=== PATIENT | female | born 1980 | race Caucasian/White ===

== ENCOUNTER 2019-02-03 07:31 | Observation (INO) | payer BC ==
[2019-02-03] MEDS ORDERED: HYDROmorphone 1 MG/ML Syringe IVPUSH ONE ×3 (08:04→14:05)
[2019-02-03] MEDS ORDERED: Ondansetron 4 MG/2 ML SDV IVPUSH ONE ×2 (08:04→09:08)
--- NOTE | 2019-02-03 08:11 | EDM.PDOC ---
ED HPI GENERAL MEDICAL PROBLEM - General Chief Complaint: Abdominal Pain Stated Complaint: ABDOMINAL PAIN Time Seen by Provider: 02/03/19 07:43 Source of Information: Reports: Patient, RN Notes Reviewed, Significant Other ( Boyfriend) History Limitations: Reports: No Limitations - History of Present Illness INITIAL COMMENTS - FREE TEXT/NARRATIVE: The patient states that she developed generalized abdominal pain around 14:00 yesterday, 02/02/2019. She states that she took a nap until around 19:00, by which time she noticed that the pain was greater in her right lower quadrant , and that she also had right flank pain. She describes the pain is sharp and stabbing in character. It waxes and wanes. The pain is better if she remains still, worse with movement. The patient developed nausea and emesis around 20:00 , and she notes that her pain is made much worse when she vomits. She denies having any dysuria, although does report that she has had increased urinary frequency. No gross hematuria. The patient also reports having one episode of watery diarrhea just prior to coming to the ED. The diarrhea did not modify her symptoms. No prior similar symptoms. The patient states that she took some ibuprofen around 09:00 this morning. Her last oral solid food was last night. Her LMP was 01/20/2019. The patient does not have a PCP. Abdomen Pain Score (Numeric/FACES): 8 - Related Data Allergies Allergy/AdvReac Type Severity Reaction Status Date / Time alcohol Allergy Blisters Verified 02/03/19 08:39 [From Mastisol Liquid Adhesive] gum mastic Allergy Blisters Verified 02/03/19 08:39 [From Mastisol Liquid Adhesive] methyl salicylate Allergy Blisters Verified 02/03/19 08:39 [From Mastisol Liquid Adhesive] storax Allergy Blisters Verified 02/03/19 08:39 [From Mastisol Liquid Adhesive] surgical glue Allergy Blisters Uncoded 02/03/19 08:39 Home Meds: Home Meds . 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: Other (See Below) (Ovarian cysts) : 2 Para: 2 Musculoskeletal History: Reports: Fracture (left foot) - Past Surgical History HEENT Surgical History: Reports: Eye Surgery (left, for strabismus), Oral Surgery (wisdom teeth extraction), Other (See Below) (mandible cyst excision) GI Surgical History: Reports: Cholecystectomy (around 2012 or 2013) Musculoskeletal Surgical History: Reports: ORIF (left foot) Dermatological Surgical History: Reports: Other (See Below) (Lipoma excised off back) Social & Family History - Tobacco Use Smoking Status *Q: Current Every Day Smoker Years of Tobacco use: 20 Packs/Tins Daily: 0.5 Packs/Tins Daily Comment: Down from 1 ppd - Alcohol Use Alcohol Use History: Yes Alcohol Use Frequency: Socially - Recreational Drug Use Recreational Drug Use: No - Living Situation & Occupation Living situation: Reports: , with Significant Other (Boyfriend), with Family (Son) 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 ED EXAM, GENERAL - Physical Exam Exam: See Below Exam Limited By: No Limitations General Appearance: Alert, WD/WN, Other (Appears uncomfortable) Eye Exam: Bilateral Eye: EOMI, Normal Inspection Ears: Normal External Exam, Hearing Grossly Normal Nose: Normal Inspection Throat/Mouth: Normal Inspection, Normal Lips, Normal Voice, No Airway Compromise Head: Atraumatic, Normocephalic Neck: Normal Inspection, Full Range of Motion Respiratory/Chest: No Respiratory Distress, Lungs Clear, Normal Breath Sounds, No Accessory Muscle Use Cardiovascular: Normal Peripheral Pulses, Regular Rate, Rhythm, No Gallop, No JVD, No Murmur, No Rub Peripheral Pulses: 4+: Radial (L), Radial (R) GI/Abdominal: Normal Bowel Sounds, Soft, No Organomegaly, No Distention, No Abnormal Bruit, No Mass, Tender (mild, RLQ to far right side. Essentially nontender elsewhere. Rovsing's sign absent.) (Female) Exam: Deferred Rectal (Female) Exam: Deferred Back Exam: Normal Inspection, Full Range of Motion, CVA Tenderness (R). No: CVA Tenderness (L) Extremities: Normal Inspection, Normal Range of Motion, No Pedal Edema, Normal Capillary Refill Neurological: Alert, Oriented, Normal Cognition, No Motor/Sensory Deficits Psychiatric: Normal Affect Skin Exam: Warm, Dry, Intact, Normal Color, No Rash Course - Vital Signs Last Recorded V/S: Last Vital Signs Temp 36.6 C 02/03/19 10:41 Pulse 83 02/03/19 10:41 Resp 16 02/03/19 10:41 BP 110/74 02/03/19 10:41 Pulse Ox 100 02/03/19 10:41 - Orders/Labs/Meds Orders: Active Orders 24 hr Category Date Time Status Abdomen Pelvis w Cont [CT] Stat Exams 02/03/19 09:03 Taken Sodium Chloride 0.9% [Normal Saline] 1,000 ml Med 02/03/19 08:15 Active IV ASDIRECTED Sodium Chloride 0.9% [Saline Flush] Med 02/03/19 09:23 Active 10 ml FLUSH ONETIME PRN Medication Orders Sodium Chloride (Normal Saline) 1,000 mls @ 150 mls/hr IV ASDIRECTED MARYAM Last Admin: 02/03/19 08:19 Dose: 150 mls/hr Sodium Chloride (Saline Flush) 10 ml FLUSH ONETIME PRN PRN Reason: IV FLUSH Last Admin: 02/03/19 10:36 Dose: 10 ml Labs: Laboratory Tests 02/03/19 02/03/19 02/03/19 Range/Units 07:55 07:55 08:10 WBC 8.61 (3.98-10.04) K/mm3 RBC 5.22 (3.98-5.22) M/mm3 Hgb 15.1 (11.2-15.7) gm/L Hct 42.8 (34.1-44.9) % MCV 82.0 (79.4-94.8) fl MCH 28.9 (25.6-32.2) pg MCHC 35.3 (32.2-35.5) g/dl RDW Std Deviation 38.1 (36.4-46.3) fL Plt Count 293 (182-369) K/mm3 MPV 10.7 (9.4-12.3) fl Neutrophils % (Manual) 49 (40-60) % Band Neutrophils % 0 (0-10) % Lymphocytes % (Manual) 47 H (20-40) % Atypical Lymphs % 0 % Monocytes % (Manual) 4 (2-10) % Eosinophils % (Manual) 0 L (0.7-5.8) % Basophils % (Manual) 0 L (0.1-1.2) Platelet Estimate Adequate Polychromasia 1+ slight Anisocytosis 1+ slight RBC Morph Comment Abnormal Sodium 138 (136-145) mEq/L Potassium 3.3 L (3.5-5.1) mEq/L Chloride 102 (98-107) mEq/L Carbon Dioxide 23 (21-32) mEq/L Anion Gap 16.3 H (5-15) BUN 9 (7-18) mg/dL Creatinine 0.9 (0.55-1.02) mg/dL Est Cr Clr Drug Dosing 77.01 mL/min Estimated GFR (MDRD) > 60 (>60) mL/min BUN/Creatinine Ratio 10.0 L (14-18) Glucose 75 (74-106) mg/dL Calcium 9.3 (8.5-10.1) mg/dL Total Bilirubin 0.4 (0.2-1.0) mg/dL AST 17 (15-37) U/L ALT 33 (14-59) U/L Alkaline Phosphatase 69 (46-116) U/L Total Protein 8.5 H (6.4-8.2) g/dl Albumin 4.6 (3.4-5.0) g/dl Globulin 3.9 gm/dL Albumin/Globulin Ratio 1.2 (1-2) Urine Color Yellow (Yellow) Urine Appearance Clear (Clear) Urine pH 6.0 (5.0-8.0) Ur Specific Morley <=1.005 (1.005-1.030) Urine Protein Negative (Negative) Urine Glucose (UA) Negative (Negative) Urine Ketones Negative (Negative) Urine Occult Blood Trace-lysed H (Negative) Urine Nitrite Negative (Negative) Urine Bilirubin Negative (Negative) Urine Urobilinogen 0.2 (0.2-1.0) Ur Leukocyte Esterase Negative (Negative) Urine RBC 0-5 (0-5) /hpf Urine WBC Not seen (0-5) /hpf Ur Epithelial Cells Not seen (0-5) /hpf Urine Bacteria Rare (FEW) /hpf Urine Mucus Not seen (FEW) /hpf Urine HCG, Qual (NEGATIVE) 02/03/19 Range/Units 08:10 WBC (3.98-10.04) K/mm3 RBC (3.98-5.22) M/mm3 Hgb (11.2-15.7) gm/L Hct (34.1-44.9) % MCV (79.4-94.8) fl MCH (25.6-32.2) pg MCHC (32.2-35.5) g/dl RDW Std Deviation (36.4-46.3) fL Plt Count (182-369) K/mm3 MPV (9.4-12.3) fl Neutrophils % (Manual) (40-60) % Band Neutrophils % (0-10) % Lymphocytes % (Manual) (20-40) % Atypical Lymphs % % Monocytes % (Manual) (2-10) % Eosinophils % (Manual) (0.7-5.8) % Basophils % (Manual) (0.1-1.2) Platelet Estimate Polychromasia Anisocytosis RBC Morph Comment Sodium (136-145) mEq/L Potassium (3.5-5.1) mEq/L Chloride (98-107) mEq/L Carbon Dioxide (21-32) mEq/L Anion Gap (5-15) BUN (7-18) mg/dL Creatinine (0.55-1.02) mg/dL Est Cr Clr Drug Dosing mL/min Estimated GFR (MDRD) (>60) mL/min BUN/Creatinine Ratio (14-18) Glucose (74-106) mg/dL Calcium (8.5-10.1) mg/dL Total Bilirubin (0.2-1.0) mg/dL AST (15-37) U/L ALT (14-59) U/L Alkaline Phosphatase (46-116) U/L Total Protein (6.4-8.2) g/dl Albumin (3.4-5.0) g/dl Globulin gm/dL Albumin/Globulin Ratio (1-2) Urine Color (Yellow) Urine Appearance (Clear) Urine pH (5.0-8.0) Ur Specific Morley (1.005-1.030) Urine Protein (Negative) Urine Glucose (UA) (Negative) Urine Ketones (Negative) Urine Occult Blood (Negative) Urine Nitrite (Negative) Urine Bilirubin (Negative) Urine Urobilinogen (0.2-1.0) Ur Leukocyte Esterase (Negative) Urine RBC (0-5) /hpf Urine WBC (0-5) /hpf Ur Epithelial Cells (0-5) /hpf Urine Bacteria (FEW) /hpf Urine Mucus (FEW) /hpf Urine HCG, Qual Negative (NEGATIVE) Meds: Medications Generic Name Dose Route Start Last Admin Trade Name Freq PRN Reason Stop Dose Admin Sodium Chloride 1,000 mls @ 150 mls/hr 02/03/19 08:15 02/03/19 08:19 Normal Saline IV 150 mls/hr ASDIRECTED MARYAM Administration Sodium Chloride 10 ml 02/03/19 09:23 02/03/19 10:36 Saline Flush FLUSH 10 ml ONETIME PRN Administration IV FLUSH Discontinued Medications Generic Name Dose Route Start Last Admin Trade Name Freq PRN Reason Stop Dose Admin Diatrizoate Meglum/Diatrizoate Sod 120 ml 02/03/19 09:23 02/03/19 10:36 Gastrografin 37% PO 02/03/19 09:24 90 ml ONETIME ONE Administration Hydromorphone HCl 1 mg 02/03/19 08:04 02/03/19 08:17 Dilaudid IVPUSH 02/03/19 08:05 1 mg ONETIME ONE Administration Hydromorphone HCl 1 mg 02/03/19 09:08 02/03/19 09:13 Dilaudid IVPUSH 02/03/19 09:09 1 mg ONETIME ONE Administration Iopamidol 200 ml 02/03/19 09:23 02/03/19 10:36 Isovue-370 (76%) IV 02/03/19 09:24 100 ml ONETIME ONE Administration Metoclopramide HCl 10 mg 02/03/19 10:19 02/03/19 10:22 Reglan IVPUSH 02/03/19 10:20 10 mg ONETIME STA Administration Ondansetron HCl 4 mg 02/03/19 08:04 02/03/19 08:15 Zofran IVPUSH 02/03/19 08:05 4 mg ONETIME ONE Administration Ondansetron HCl 4 mg 02/03/19 09:08 02/03/19 09:13 Zofran IVPUSH 02/03/19 09:09 4 mg ONETIME ONE Administration - Re-Assessments/Exams Free Text/Narrative Re-Assessment/Exam: 02/03/19 08:05 Based on the patient's history and physical examination, I think it is more likely that the patient is suffering from nephrolithiasis, however, appendicitis is still on the differential, as the patient has more right CVA tenderness than she has RLQ tenderness. I have ordered a urinalysis and urine test. If there is blood in the urine, I will proceed with a CT of the abdomen and pelvis without contrast. If there is no blood, I will proceed with a CT of the abdomen and pelvis with oral and IV contrast. The the meantime, the patient will receive some Dilaudid, Zofran, and IVF. 02/03/19 09:04 The patient's urinalysis shows trace lysed occult blood, but 0-5 RBCs, not consistent with nephrolithiasis. I have therefore ordered bloodwork and a CT scan of the abdomen and pelvis with oral and IV contrast. 02/03/19 09:08 The patient tells me that her pain was inadequately controlled with the Dilaudid she received earlier, and she still has nausea. I have therefore ordered additional Dilaudid and Zofran. 02/03/19 11:16 CT of the abdomen and pelvis with oral and IV contrast is read by Dr. Naylor as: 1. Free fluid within the pelvis most likely due to follicle or nonvisualized cyst rupture. Incidental cyst within the left ovary measuring 2.5 cm is seen. 2. Small hiatal hernia and gastroesophageal reflux of contrast. 3. Other findings which are felt to be incidental as described above. The body of the report states "Appendix is seen which is normal in size." and "Delayed images show contrast within the distal ureters and within the bladder. " 02/03/19 11:21 Test results discussed with the patient and her boyfriend. The patient is still very nauseated, vomiting into an emesis bag, while her pain has improved somewhat following IV Dilaudid, she still appears to be very uncomfortable. 02/03/19 11:[address] Mckenzie at 11:22. She feels that the patient should be admitted to the hospitalist, with her on consult. Case then discussed with Dr. Guallpa at 11:28. He agreed to place the patient into observation. Departure - Departure Time of Disposition: 11:33 Disposition: Refer to Observation Condition: Fair Clinical Impression: Abdominal pain of unknown etiology, Right flank pain, Nausea & vomiting - Discharge Information *PRESCRIPTION DRUG MONITORING PROGRAM REVIEWED*: Not Applicable *COPY OF PRESCRIPTION DRUG MONITORING REPORT IN PATIENT BRIANNE: Not Applicable Referrals: PCP,None [Primary Care Provider] - - My Orders Last 24 Hours: My Active Orders 02/03/19 08:15 Sodium Chloride 0.9% [Normal Saline] 1,000 ml IV ASDIRECTED 02/03/19 09:03 Abdomen Pelvis w Cont [CT] Stat 02/03/19 09:23 Sodium Chloride 0.9% [Saline Flush] 10 ml FLUSH ONETIME PRN - Assessment/Plan Last 24 Hours: My Active Orders 02/03/19 08:15 Sodium Chloride 0.9% [Normal Saline] 1,000 ml IV ASDIRECTED 02/03/19 09:03 Abdomen Pelvis w Cont [CT] Stat 02/03/19 09:23 Sodium Chloride 0.9% [Saline Flush] 10 ml FLUSH ONETIME PRN
[2019-02-03] MEDS ORDERED: Sodium Chloride 0.9% 1,000 ML IV SCH (08:15)
[2019-02-03] MEDS ORDERED: Diatrizoate Meglumine/Diatrizoate Sodium 37% 120 ML Bottle PO ONE (09:23)
[2019-02-03] MEDS ORDERED: Iopamidol 755 Mg/ML 200 ML Bottle IV ONE (09:23)
[2019-02-03] MEDS ORDERED: Sodium Chloride 0.9% 10 ML Syringe FLUSH PRN (09:23)
[2019-02-03] MEDS ORDERED: Metoclopramide 10 MG/2 ML SDV IVPUSH STA (10:19)
--- NOTE | 2019-02-03 11:34 | CT ---
CT abdomen and pelvis Technique: Multiple axial sections were obtained from above the dome of the diaphragm inferiorly through the pubic symphysis. Intravenous contrast was utilized. Oral contrast given but contrast remains within the patient's stomach. Findings: Small hiatal hernia is seen. Contrast is noted within the distal esophagus compatible with reflux. Visualized lung bases show nothing acute. Slight intrahepatic biliary duct dilatation is seen. Mild extrahepatic biliary duct dilatation is seen. Findings most likely due to prior cholecystectomy. No focal parenchymal abnormality is identified within the liver. Spleen appears within normal limits. Adrenal glands show no nodule. Pancreas is within normal limits. Kidneys show symmetric contrast enhancement without hydronephrosis or mass. Aorta shows no aneurysm. No retroperitoneal adenopathy or mesenteric abnormalities are seen. No pelvic mass or adenopathy is seen. Colon shows minimal scattered diverticuli without diverticulitis. Appendix is seen which is normal in size. Free fluid is seen within the pelvis. 2.5 cm cyst is noted within the left ovary. Delayed images show contrast within the distal ureters and within the bladder. Bone window settings appear within normal limits for the patient's age. Impression: 1. Free fluid within the pelvis most likely due to follicle or nonvisualized cyst rupture. Incidental cyst within the left ovary measuring 2.5 cm is seen. 2. Small hiatal hernia and gastroesophageal reflux of contrast. 3. Other findings which are felt to be incidental as described above. Diagnostic code #2
[2019-02-03] MEDS ORDERED: HYDROmorphone 1 MG/ML Syringe ONE (14:03)
[2019-02-03] MEDS ORDERED: LORazepam 2 MG/ML SDV IVPUSH PRN (14:14)
[2019-02-03] MEDS ORDERED: Metoprolol Tartrate 5 MG/5 ML SDV IVPUSH PRN (14:14)
[2019-02-03] MEDS ORDERED: Pantoprazole 40 MG Vial IVPUSH ONE (14:16)
[2019-02-03] MEDS ORDERED: Temazepam 15 MG Cap PO PRN (14:17)
[2019-02-03] MEDS ORDERED: Albuterol/Ipratropium 3.0-0.5 MG/3 ML Neb Soln NEB PRN (14:17)
[2019-02-03] MEDS ORDERED: Docusate Sodium 100 MG Cap PO PRN (14:17)
[2019-02-03] MEDS ORDERED: LORazepam 2 MG/ML SDV IV PRN (14:17)
[2019-02-03] MEDS ORDERED: Bisacodyl 5 MG Tab PO PRN (14:17)
[2019-02-03] MEDS ORDERED: Acetaminophen 325 MG Tab PO PRN (14:17)
[2019-02-03] MEDS ORDERED: Polyethylene Glycol 3350 Powder 17 GM Packet PO PRN (14:17)
[2019-02-03] MEDS ORDERED: Scopolamine 1.5 MG Transdermal Patch TRDERM ONE (14:22)
--- NOTE | 2019-02-03 14:24 | PCM.HP ---
H&P History of Present Illness - General Date of Service: 02/03/19 Admit Problem/Dx: Admission Diagnosis/Problem Admission Diagnosis/Problem Abdominal pain Source of Information: Patient, Family, Old Records, Provider, RN Notes Reviewed History Limitations: Reports: Other (Severe Pain) - History of Present Illness Initial Comments - Free Text/Narative: This is a 38 yo white female with past medical hx/o GERD, Ovarian Cysts, Cholecystectomy [id number], Lipoma Resection and Nicotine Dependence who comes in for sudden onset of generalized abdominal pain that started at about 1400 yesterday. At that time, it did not bother her much so she took a nap in an anticipation that it will go away. By 1900, her pain seems to have worsen to her right lower quadrant and right flank. She describes her pain as sharp and stabbing in nature and is made worse with movement. Her pain later followed by nausea, vomiting and a one time episode of watery diarrhea prior to coming in to ED. She denies any issues. No dysuria or hematuria. Her last sexual contact with her /partner was 2 weeks ago and her LMP was on 20 of January. She further denies any recent trauma or injury. She still has her appendix but gallbladder. Her initial work up in ED shows a CBC remarkable for Lymphocytes of 47%. Her chemistry is significant for K of 3.3, AG of 16.3, and Total Protein of 8.5. Her UA is not suggestive of UTI. UDS is consistent with what she receives for treatment: opiates and benzos. Her CT scan report of the abdomen/pelvis reads free fluid within the pelvis most likely due to follicle or nonvisualized cyst rupture. Incidental cyst within the left ovary measuring 2.5 cm is seen. Small hiatal hernia and VANITA of contrast. Patient is being admitted for acute abdominal pain unclear in etiology. Abdomen Pain Score (Numeric/FACES): 8 - Related Data Allergies/Adverse Reactions: Allergies Allergy/AdvReac Type Severity Reaction Status Date / Time alcohol Allergy Blisters Verified 02/03/19 08:39 [From Mastisol Liquid Adhesive] gum mastic Allergy Blisters Verified 02/03/19 08:39 [From Mastisol Liquid Adhesive] methyl salicylate Allergy Blisters Verified 02/03/19 08:39 [From Mastisol Liquid Adhesive] storax Allergy Blisters Verified 02/03/19 08:39 [From Mastisol Liquid Adhesive] surgical glue Allergy Blisters Uncoded 02/03/19 08:39 Home Medications: Home Meds . [No Known Home Meds] 02/03/19 [History] Past Medical History Gastrointestinal History: Reports: GERD Genitourinary History: Reports: UTI, Recurrent ENTRY LEVEL [place] History: Reports: Other (See Below) (Ovarian cysts) Musculoskeletal History: Reports: Fracture (left foot) Psychiatric History: Reports: Anxiety Hematologic History: Reports: Anemia Other Hematologic History: during . - Infectious Disease History Infectious Disease History: Reports: Chicken Pox - Past Surgical History HEENT Surgical History: Reports: Eye Surgery (left, for strabismus), Oral Surgery (wisdom teeth extraction), Other (See Below) (mandible cyst excision) GI Surgical History: Reports: Cholecystectomy (around 2012 or 2013) Musculoskeletal Surgical History: Reports: ORIF (left foot) Dermatological Surgical History: Reports: Other (See Below) (Lipoma excised off back) Social & Family History - Tobacco Use Smoking Status *Q: Current Every Day Smoker Years of Tobacco use: 20 Packs/Tins Daily: 0.5 - Caffeine Use Caffeine Use: Reports: Soda - Recreational Drug Use Recreational Drug Use: No - Living Situation & Occupation Living situation: Reports: , with Significant Other (Boyfriend), with Family (Son) 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 Denies: Anorexia, Black Stool, Bloody Stool , Constipation, Difficulty Swallowing, Distension, Hematemesis, Hematochezia, Melena, Mucous in Stool Genitourinary: Reports: Flank Pain (right) Musculoskeletal: Reports: No Symptoms Skin: Denies: Cyanosis, Pallor, Diaphoresis, Bruising, Pruritis, Erythema Psychiatric: Denies: Confusion, Mood Lability, Anxiety, Agitation, Cravings, Hallucinations, Suicidal Ideation Neurological: Reports: Difficulty Walking, Weakness. Denies: Confusion, Gait Disturbance Hematologic/Lymphatic: Reports: No Symptoms Immunologic: Reports: No Symptoms Exam - Exam Exam: See Below - Vital Signs Vital Signs: Last Vital Signs Temp 36.3 C 02/03/19 13:45 Pulse 78 02/03/19 13:45 Resp 16 02/03/19 13:45 BP 117/85 02/03/19 13:45 Pulse Ox 96 02/03/19 13:45 Weight: 77.111 kg - Exam General: Severe Distress, Other (Severe Pain and Stoich) HEENT: EACs Clear, EOMI, Hearing Intact, Mucosa Moist & [place], Normal Nasal Septum, Posterior Pharynx Clear, Pupils Equal, Pupils Reactive. No: Conjunctiva Clear (red), Nares Patent (congested ) Neck: Supple, Trachea Midline Cardiovascular: Regular Rate, Regular Rhythm GI/Abdominal Exam: Normal Bowel Sounds, Soft, No Organomegaly, No Distention, No Abnormal Bruit, Guarding, Tender (right lower admoen ). No: Distended, Rigid , Rebound (Female) Exam: Deferred Rectal (Female) Exam: Deferred Back Exam: Normal Inspection, Decreased Range of Motion Extremities: Non-Tender, No Pedal Edema, Normal Capillary Refill, Limited Range of Motion. No: You's Sign, Leg Pain, Mottled, Pallor Peripheral Pulses: 3+: Posterior Tibial (L), Posterior Tibial (R), Dorsalis Pedis (L), Dorsalis Pedis (R) Skin: Warm, Intact Neuro Extensive - Mental Status: Oriented x3, Normal Cognition, Memory Intact Neuro Extensive - Motor, Sensory, Reflexes: CN II-XII Intact (very limited due to severe pain with movement ), Abnormal Gait Psychiatric: Normal Affect, Normal Mood, Anxious, Other Physical Exam Comments:: Patient is in severe pain, crying and did not want be manipulated if all possible. ROM for passive and active test were limited to severe pain. - Patient Data Lab Results Last 24 hrs: Laboratory Results - last 24 hr 02/03/19 02/03/19 02/03/19 Range/Units 07:55 07:55 08:10 WBC 8.61 (3.98-10.04) K/mm3 RBC 5.22 (3.98-5.22) M/mm3 Hgb 15.1 (11.2-15.7) gm/L Hct 42.8 (34.1-44.9) % MCV 82.0 (79.4-94.8) fl MCH 28.9 (25.6-32.2) pg MCHC 35.3 (32.2-35.5) g/dl RDW Std Deviation 38.1 (36.4-46.3) fL Plt Count 293 (182-369) K/mm3 MPV 10.7 (9.4-12.3) fl Neutrophils % (Manual) 49 (40-60) % Band Neutrophils % 0 (0-10) % Lymphocytes % (Manual) 47 H (20-40) % Atypical Lymphs % 0 % Monocytes % (Manual) 4 (2-10) % Eosinophils % (Manual) 0 L (0.7-5.8) % Basophils % (Manual) 0 L (0.1-1.2) Platelet Estimate Adequate Polychromasia 1+ slight Anisocytosis 1+ slight RBC Morph Comment Abnormal Sodium 138 (136-145) mEq/L Potassium 3.3 L (3.5-5.1) mEq/L Chloride 102 (98-107) mEq/L Carbon Dioxide 23 (21-32) mEq/L Anion Gap 16.3 H (5-15) BUN 9 (7-18) mg/dL Creatinine 0.9 (0.55-1.02) mg/dL Est Cr Clr Drug Dosing 77.01 mL/min Estimated GFR (MDRD) > 60 (>60) mL/min BUN/Creatinine Ratio 10.0 L (14-18) Glucose 75 (74-106) mg/dL Calcium 9.3 (8.5-10.1) mg/dL Total Bilirubin 0.4 (0.2-1.0) mg/dL AST 17 (15-37) U/L ALT 33 (14-59) U/L Alkaline Phosphatase 69 (46-116) U/L Total Protein 8.5 H (6.4-8.2) g/dl Albumin 4.6 (3.4-5.0) g/dl Globulin 3.9 gm/dL Albumin/Globulin Ratio 1.2 (1-2) Urine Color Yellow (Yellow) Urine Appearance Clear (Clear) Urine pH 6.0 (5.0-8.0) Ur Specific [place] <=1.005 (1.005-1.030) Urine Protein Negative (Negative) Urine Glucose (UA) Negative (Negative) Urine Ketones Negative (Negative) Urine Occult Blood Trace-lysed H (Negative) Urine Nitrite Negative (Negative) Urine Bilirubin Negative (Negative) Urine Urobilinogen 0.2 (0.2-1.0) Ur Leukocyte Esterase Negative (Negative) Urine RBC 0-5 (0-5) /hpf Urine WBC Not seen (0-5) /hpf Ur Epithelial Cells Not seen (0-5) /hpf Urine Bacteria Rare (FEW) /hpf Urine Mucus Not seen (FEW) /hpf Urine HCG, Qual (NEGATIVE) 02/03/19 Range/Units 08:10 WBC (3.98-10.04) K/mm3 RBC (3.98-5.22) M/mm3 Hgb (11.2-15.7) gm/L Hct (34.1-44.9) % MCV (79.4-94.8) fl MCH (25.6-32.2) pg MCHC (32.2-35.5) g/dl RDW Std Deviation (36.4-46.3) fL Plt Count (182-369) K/mm3 MPV (9.4-12.3) fl Neutrophils % (Manual) (40-60) % Band Neutrophils % (0-10) % Lymphocytes % (Manual) (20-40) % Atypical Lymphs % % Monocytes % (Manual) (2-10) % Eosinophils % (Manual) (0.7-5.8) % Basophils % (Manual) (0.1-1.2) Platelet Estimate Polychromasia Anisocytosis RBC Morph Comment Sodium (136-145) mEq/L Potassium (3.5-5.1) mEq/L Chloride (98-107) mEq/L Carbon Dioxide (21-32) mEq/L Anion Gap (5-15) BUN (7-18) mg/dL Creatinine (0.55-1.02) mg/dL Est Cr Clr Drug Dosing mL/min Estimated GFR (MDRD) (>60) mL/min BUN/Creatinine Ratio (14-18) Glucose (74-106) mg/dL Calcium (8.5-10.1) mg/dL Total Bilirubin (0.2-1.0) mg/dL AST (15-37) U/L ALT (14-59) U/L Alkaline Phosphatase (46-116) U/L Total Protein (6.4-8.2) g/dl Albumin (3.4-5.0) g/dl Globulin gm/dL Albumin/Globulin Ratio (1-2) Urine Color (Yellow) Urine Appearance (Clear) Urine pH (5.0-8.0) Ur Specific [place] (1.005-1.030) Urine Protein (Negative) Urine Glucose (UA) (Negative) Urine Ketones (Negative) Urine Occult Blood (Negative) Urine Nitrite (Negative) Urine Bilirubin (Negative) Urine Urobilinogen (0.2-1.0) Ur Leukocyte Esterase (Negative) Urine RBC (0-5) /hpf Urine WBC (0-5) /hpf Ur Epithelial Cells (0-5) /hpf Urine Bacteria (FEW) /hpf Urine Mucus (FEW) /hpf Urine HCG, Qual Negative (NEGATIVE) Result Diagrams: 02/04/19 05:36 02/04/19 05:36 Problem List Initiated/Reviewed/Updated: Yes Orders Last 24hrs: Active Orders 24 hr Category Date Time Status Admission Status [Patient Status] [ADT] Routine ADT 02/03/19 12:20 Active Antiembolic Devices [RC] PER UNIT ROUTINE Care 02/03/19 14:20 Ordered Height and Weight [RC] DAILY Care 02/03/19 14:17 Ordered Intake and Output [RC] QSHIFT Care 02/03/19 14:17 Ordered Notify Provider Consults [RC] ASDIRECTED Care 02/03/19 14:12 Ordered Oxygen Therapy [RC] PRN Care 02/03/19 14:17 Ordered RT Aerosol Therapy [RC] ASDIRECTED Care 02/03/19 14:20 Ordered Up With Assistance [RC] ASDIRECTED Care 02/03/19 14:17 Ordered Up ad Sheila [RC] ASDIRECTED Care 02/03/19 14:17 Ordered VTE/DVT Education [RC] PER UNIT ROUTINE Care 02/03/19 14:17 Ordered Vital Signs [RC] Q4H Care 02/03/19 14:17 Ordered Consult to Physician [CONS] Routine Cons 02/03/19 14:11 Ordered Consult to Spiritual Care [CONS] Routine Cons 02/03/19 14:17 Ordered Nothing per Oral Now Diet [DIET] Diet 02/03/19 Lunch Ordered C-REACTIVE PROTEIN [CHEM] AM Lab 02/04/19 05:11 Ordered C-REACTIVE PROTEIN [CHEM] AM Lab 02/05/19 05:11 Ordered C-REACTIVE PROTEIN [CHEM] AM Lab 02/06/19 05:11 Ordered C-REACTIVE PROTEIN [CHEM] AM Lab 02/07/19 05:11 Ordered CBC WITH AUTO DIFF [HEME] AM Lab 02/04/19 05:11 Ordered CBC WITH AUTO DIFF [HEME] AM Lab 02/05/19 05:11 Ordered CBC WITH AUTO DIFF [HEME] AM Lab 02/06/19 05:11 Ordered CBC WITH AUTO DIFF [HEME] AM Lab 02/07/19 05:11 Ordered COMPREHENSIVE METABOLIC PN,CMP [CHEM] AM Lab 02/04/19 05:11 Ordered COMPREHENSIVE METABOLIC PN,CMP [CHEM] AM Lab 02/05/19 05:11 Ordered COMPREHENSIVE METABOLIC PN,CMP [CHEM] AM Lab 02/06/19 05:11 Ordered COMPREHENSIVE METABOLIC PN,CMP [CHEM] AM Lab 02/07/19 05:11 Ordered MAGNESIUM [CHEM] AM Lab 02/04/19 05:11 Ordered MAGNESIUM [CHEM] AM Lab 02/05/19 05:11 Ordered MAGNESIUM [CHEM] AM Lab 02/06/19 05:11 Ordered MAGNESIUM [CHEM] AM Lab 02/07/19 05:11 Ordered Acetaminophen [Tylenol] Med 02/03/19 14:17 Ordered 650 mg PO Q4H PRN Acetaminophen/HYDROcodone [[place] 325-5 MG] Med 02/03/19 14:17 Ordered 1 tab PO Q4H PRN Albuterol/Ipratropium [DuoNeb 3.0-0.5 MG/3 ML] Med 02/03/19 14:17 Ordered 3 ml NEB Q4H PRN Bisacodyl [Dulcolax] Med 02/03/19 14:17 Ordered 5 mg PO DAILY PRN D5%-0.9% NaCl w/ KCl 40 meq [D5 NS with 40 mEq KCl] 1, Med 02/03/19 14:30 Ordered 000 ml IV ASDIRECTED Docusate Sodium [Colace] Med 02/03/19 14:17 Ordered 100 mg PO BID PRN Docusate Sodium/Sennosides [Senna Plus] Med 02/03/19 14:17 Ordered 1 tab PO BID PRN Ibuprofen [Motrin] Med 02/03/19 21:00 Ordered 600 mg PO TID@0700,1400,2100 Ketorolac [Toradol] Med 02/03/19 14:17 Ordered 60 mg IM Q6H PRN LORazepam [Ativan] Med 02/03/19 14:17 Ordered 1 mg IV Q6H PRN LORazepam [Ativan] Med 02/03/19 14:14 Ordered 1 mg IVPUSH Q4H PRN Metoprolol Tartrate [Lopressor] Med 02/03/19 14:14 Ordered 5 mg IVPUSH Q4H PRN Nicotine [Habitrol] Med 02/04/19 09:00 Ordered 21 mg TRDERM DAILY Pantoprazole [ProTONIX IV] Med 02/03/19 14:16 Once 40 mg IVPUSH ONETIME ONE Pantoprazole [ProTONIX IV] Med 02/03/19 14:30 Ordered 40 mg IVPUSH Q12H Pharmacy to Dose - Magnesium R [Pharmacy to Dose - Med 02/03/19 14:15 Ordered Magnesium Replacement] 1 dose .XX ASDIRECTED Pharmacy to Dose - Potassium R [Pharmacy to Dose - Med 02/03/19 14:15 Ordered Potassium Replacement] 1 dose .XX ASDIRECTED Polyethylene Glycol 3350 [MiraLAX] Med 02/03/19 14:17 Ordered 17 gm PO DAILY PRN Scopolamine [Transderm-Scop] Med 02/03/19 14:22 Once 1.5 mg TRDERM Q72H ONE Sodium Chloride 0.9% [Normal Saline] 1,000 ml Med 02/03/19 08:15 Active IV ASDIRECTED Sodium Chloride 0.9% [Saline Flush] Med 02/03/19 09:23 Active 10 ml FLUSH ONETIME PRN Temazepam [Restoril] Med 02/03/19 14:17 Ordered 15 mg PO BEDTIME PRN Sequential Compression Device [OM.PC] Per Unit Routine Oth 02/03/19 14:17 Ordered Resuscitation Status Routine Resus Stat 02/03/19 14:17 Ordered Medication Orders Acetaminophen (Tylenol) 650 mg PO Q4H PRN PRN Reason: Pain (Mild 1-3)/fever Hydrocodone Bitart/Acetaminophen ([place] 325-5 Mg) 1 tab PO Q4H PRN PRN Reason: Pain (moderate 4-6) Albuterol/Ipratropium (Duoneb 3.0-0.5 Mg/3 Ml) 3 ml NEB Q4H PRN PRN Reason: Shortness Of Breath/wheezing Bisacodyl (Dulcolax) 5 mg PO DAILY PRN PRN Reason: Constipation Docusate Sodium (Colace) 100 mg PO BID PRN PRN Reason: Constipation Sodium Chloride (Normal Saline) 1,000 mls @ 150 mls/hr IV ASDIRECTED [facility] Last Admin: 02/03/19 08:19 Dose: 150 mls/hr Ibuprofen (Motrin) 600 mg PO TID@0700,1400,2100 [facility] Stop: 02/06/19 14:01 Ketorolac Tromethamine (Toradol) 60 mg IM Q6H PRN PRN Reason: Pain (moderate 4-6) Lorazepam (Ativan) 1 mg IVPUSH Q4H PRN; Protocol PRN Reason: Withdrawal Symptoms Lorazepam (Ativan) 1 mg IV Q6H PRN PRN Reason: Anxiety Magnesium Sulfate (Pharmacy To Dose - Magnesium Replacement) 1 dose .XX ASDIRECTED [facility] Metoprolol Tartrate (Lopressor) 5 mg IVPUSH Q4H PRN PRN Reason: Tachycardia Nicotine (Habitrol) 21 mg TRDERM DAILY [facility] Pantoprazole Sodium (Protonix Iv) 40 mg IVPUSH ONETIME ONE Stop: 02/03/19 14:17 Pantoprazole Sodium (Protonix Iv) 40 mg IVPUSH Q12H [facility] Stop: 02/04/19 02:31 Polyethylene Glycol (Miralax) 17 gm PO DAILY PRN PRN Reason: Constipation Potassium Chloride (Pharmacy To Dose - Potassium Replacement) 1 dose .XX ASDIRECTED [facility] Senna/Docusate Sodium (Senna Plus) 1 tab PO BID PRN PRN Reason: Constipation Sodium Chloride (Saline Flush) 10 ml FLUSH ONETIME PRN PRN Reason: IV FLUSH Last Admin: 02/03/19 10:36 Dose: 10 ml Temazepam (Restoril) 15 mg PO BEDTIME PRN PRN Reason: Sleep Assessment/Plan Comment:: Assessment/Plan: Acute: Abdominal Pain - Suspect 2/2 Gynecologic in etiology - Afebrile w/o leukocytosis - Sudden in onset and no prior hx/o of it - LMP: January 20-normal per patient - No recent trauma or injury; No strenuous activities - CT scan of the abdomen/pelvis: free fluid within the pelvis most likely due to follicle or nonvisualized cyst rupture. Incidental cyst within the left ovary measuring 2.5 cm is seen. Small hiatal hernia and VANITA of contrast. - No stones noted on imaging and UA is negative for UTI - HcG screening negative; last sexual contact 2 week ago - DDx: Appendicitis (unlikely), MSK, Ruptures Cysts, Endometriosis - GS consult with Dr. Castillo to r/o intra-abdominal in origin - Transvaginal U/S Small Hiatal Hernia - CT scan finding Nicotine Dependence - Smokes 1/2 ppd - Nicotine Patch Daily Chronic: GERD Ovarian Cysts Cholecystectomy [id number] Lipoma Resection Plan: Admit to OBS NPO for now until she is further evaluated by Dr. Castillo Routine AM labs [id number] w/ 40mEq KCl at 125 cc/hr Anti-emetic medications plus Scopolamine Patch x1 now PRN Pain Medications: Narcotics and NSAIDS Narcotics educations Activity ad sheila Resume Home Medications if there are any SW/CM for d/c planning
[2019-02-03] MEDS ORDERED: HYDROmorphone 1 MG/ML Syringe IVPUSH PRN (14:33)
[2019-02-03] MEDS: D5%-0.9% NaCl w/ KCl 40 meq 1,000 ML IV SCH (15:05)
[2019-02-03] MEDS: Ketorolac 30 MG/ML SDV IVPUSH PRN ×2 (15:08→21:49)
[2019-02-03] MEDS: Pantoprazole 40 MG Vial IVPUSH SCH (15:09)
[2019-02-03] MEDS: Nicotine 21 MG/24 Hr Patch TRDERM SCH (15:09)
--- NOTE | 2019-02-03 15:09 | PCM.CONS ---
H&P History of Present Illness - General Date of Service: 02/03/19 Admit Problem/Dx: Admission Diagnosis/Problem Admission Diagnosis/Problem Abdominal pain Source of Information: Patient, Provider History Limitations: Reports: No Limitations - History of Present Illness Initial Comments - Free Text/Narative: The patient is a 38-year-old lady who presented to the emergency department with a 2 day history of abdominal pain. She reported the pain started yesterday and became more severe. She reports multiple episodes of nausea and vomiting. Her emesis is clear. She also had a episode of diarrhea last night and this morning. She reports feeling fatigued in the days leading up to her abdominal pain. She is currently feeling urinary urgency with some pressure sensation in the pelvic floor. She has had a ruptured ovarian cyst in the past. This pain is similar, but the previous episode was not as severe. She was seen and evaluated in the emergency department. She had normal findings on her CBC with no elevation in WBC. She is no elevation in liver enzymes. Her T bilirubin. Her CT scan was largely unremarkable, only significant for small amount of free fluid in the pelvis. Abdomen Pain Score (Numeric/FACES): 8 - Related Data Allergies/Adverse Reactions: Allergies Allergy/AdvReac Type Severity Reaction Status Date / Time alcohol Allergy Blisters Verified 02/03/19 08:39 [From Mastisol Liquid Adhesive] gum mastic Allergy Blisters Verified 02/03/19 08:39 [From Mastisol Liquid Adhesive] methyl salicylate Allergy Blisters Verified 02/03/19 08:39 [From Mastisol Liquid Adhesive] storax Allergy Blisters Verified 02/03/19 08:39 [From Mastisol Liquid Adhesive] surgical glue Allergy Blisters Uncoded 02/03/19 08:39 Home Medications: Home Meds . [No Known Home Meds] 02/03/19 [History] Past Medical History Gastrointestinal History: Reports: GERD Genitourinary History: Reports: UTI, Recurrent INVENTORY TRANSCRIBER History: Reports: Other (See Below) (Ovarian cysts) Musculoskeletal History: Reports: Fracture (left foot) Psychiatric History: Reports: Anxiety Hematologic History: Reports: Anemia Other Hematologic History: during . - Infectious Disease History Infectious Disease History: Reports: Chicken Pox - Past Surgical History HEENT Surgical History: Reports: Eye Surgery (left, for strabismus), Oral Surgery (wisdom teeth extraction), Other (See Below) (mandible cyst excision) GI Surgical History: Reports: Cholecystectomy (around 2012 or 2013) Musculoskeletal Surgical History: Reports: ORIF (left foot) Dermatological Surgical History: Reports: Other (See Below) (Lipoma excised off back) Social & Family History - Family History Cardiac: Reports: None Respiratory: Reports: None GI: Reports: None Endocrine/Metabolic: Reports: None - Tobacco Use Smoking Status *Q: Current Every Day Smoker Years of Tobacco use: 20 Packs/Tins Daily: 0.5 Used Tobacco, but Quit: No Second Hand Smoke Exposure: Yes - Caffeine Use Caffeine Use: Reports: Soda - Recreational Drug Use Recreational Drug Use: No - Living Situation & Occupation Living situation: Reports: , with Significant Other (Boyfriend), with Family (Son) 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[employer]) H&P Review of Systems - Review of Systems: Review Of Systems: See Below General: Reports: Fatigue HEENT: Reports: No Symptoms Pulmonary: Reports: No Symptoms Cardiovascular: Reports: No Symptoms Gastrointestinal: Reports: Abdominal Pain, Anorexia, Diarrhea, Nausea, Vomiting Genitourinary: Reports: Dysuria, Frequency, Hematuria Musculoskeletal: Reports: No Symptoms Skin: Reports: No Symptoms Psychiatric: Reports: No Symptoms Neurological: Reports: No Symptoms Hematologic/Lymphatic: Reports: No Symptoms Exam - Exam Exam: See Below - Vital Signs Vital Signs: Last Vital Signs Temp 36.3 C 02/03/19 13:45 Pulse 78 02/03/19 13:45 Resp 16 02/03/19 13:45 BP 117/85 02/03/19 13:45 Pulse Ox 96 02/03/19 13:45 Weight: 77.111 kg - Exam Quality Assessment: No: Supplemental Oxygen General: Alert, Oriented, Mild Distress HEENT: Conjunctiva Clear, EOMI Neck: Supple Lungs: Clear to Auscultation, Normal Respiratory Effort Cardiovascular: Regular Rate, Regular Rhythm GI/Abdominal Exam: Soft, No Distention, Guarding (Localized in the right lower quadrant) Back Exam: CVA Tenderness (R) Extremities: Normal Inspection, No Pedal Edema Peripheral Pulses: 2+: Dorsalis Pedis (L), Dorsalis Pedis (R) Skin: Dry, Intact Neurological: Cranial Nerves Intact Neuro Extensive - Mental Status: Alert, Oriented x3, Normal Mood/Affect - Patient Data Lab Results Last 24 hrs: Laboratory Results - last 24 hr 02/03/19 02/03/19 02/03/19 Range/Units 07:55 07:55 08:10 WBC 8.61 (3.98-10.04) K/mm3 RBC 5.22 (3.98-5.22) M/mm3 Hgb 15.1 (11.2-15.7) gm/L Hct 42.8 (34.1-44.9) % MCV 82.0 (79.4-94.8) fl MCH 28.9 (25.6-32.2) pg MCHC 35.3 (32.2-35.5) g/dl RDW Std Deviation 38.1 (36.4-46.3) fL Plt Count 293 (182-369) K/mm3 MPV 10.7 (9.4-12.3) fl Neutrophils % (Manual) 49 (40-60) % Band Neutrophils % 0 (0-10) % Lymphocytes % (Manual) 47 H (20-40) % Atypical Lymphs % 0 % Monocytes % (Manual) 4 (2-10) % Eosinophils % (Manual) 0 L (0.7-5.8) % Basophils % (Manual) 0 L (0.1-1.2) Platelet Estimate Adequate Polychromasia 1+ slight Anisocytosis 1+ slight RBC Morph Comment Abnormal Sodium 138 (136-145) mEq/L Potassium 3.3 L (3.5-5.1) mEq/L Chloride 102 (98-107) mEq/L Carbon Dioxide 23 (21-32) mEq/L Anion Gap 16.3 H (5-15) BUN 9 (7-18) mg/dL Creatinine 0.9 (0.55-1.02) mg/dL Est Cr Clr Drug Dosing 77.01 mL/min Estimated GFR (MDRD) > 60 (>60) mL/min BUN/Creatinine Ratio 10.0 L (14-18) Glucose 75 (74-106) mg/dL Calcium 9.3 (8.5-10.1) mg/dL Total Bilirubin 0.4 (0.2-1.0) mg/dL AST 17 (15-37) U/L ALT 33 (14-59) U/L Alkaline Phosphatase 69 (46-116) U/L Total Protein 8.5 H (6.4-8.2) g/dl Albumin 4.6 (3.4-5.0) g/dl Globulin 3.9 gm/dL Albumin/Globulin Ratio 1.2 (1-2) Urine Color Yellow (Yellow) Urine Appearance Clear (Clear) Urine pH 6.0 (5.0-8.0) Ur Specific Laughlin <=1.005 (1.005-1.030) Urine Protein Negative (Negative) Urine Glucose (UA) Negative (Negative) Urine Ketones Negative (Negative) Urine Occult Blood Trace-lysed H (Negative) Urine Nitrite Negative (Negative) Urine Bilirubin Negative (Negative) Urine Urobilinogen 0.2 (0.2-1.0) Ur Leukocyte Esterase Negative (Negative) Urine RBC 0-5 (0-5) /hpf Urine WBC Not seen (0-5) /hpf Ur Epithelial Cells Not seen (0-5) /hpf Urine Bacteria Rare (FEW) /hpf Urine Mucus Not seen (FEW) /hpf Urine HCG, Qual (NEGATIVE) 02/03/19 Range/Units 08:10 WBC (3.98-10.04) K/mm3 RBC (3.98-5.22) M/mm3 Hgb (11.2-15.7) gm/L Hct (34.1-44.9) % MCV (79.4-94.8) fl MCH (25.6-32.2) pg MCHC (32.2-35.5) g/dl RDW Std Deviation (36.4-46.3) fL Plt Count (182-369) K/mm3 MPV (9.4-12.3) fl Neutrophils % (Manual) (40-60) % Band Neutrophils % (0-10) % Lymphocytes % (Manual) (20-40) % Atypical Lymphs % % Monocytes % (Manual) (2-10) % Eosinophils % (Manual) (0.7-5.8) % Basophils % (Manual) (0.1-1.2) Platelet Estimate Polychromasia Anisocytosis RBC Morph Comment Sodium (136-145) mEq/L Potassium (3.5-5.1) mEq/L Chloride (98-107) mEq/L Carbon Dioxide (21-32) mEq/L Anion Gap (5-15) BUN (7-18) mg/dL Creatinine (0.55-1.02) mg/dL Est Cr Clr Drug Dosing mL/min Estimated GFR (MDRD) (>60) mL/min BUN/Creatinine Ratio (14-18) Glucose (74-106) mg/dL Calcium (8.5-10.1) mg/dL Total Bilirubin (0.2-1.0) mg/dL AST (15-37) U/L ALT (14-59) U/L Alkaline Phosphatase (46-116) U/L Total Protein (6.4-8.2) g/dl Albumin (3.4-5.0) g/dl Globulin gm/dL Albumin/Globulin Ratio (1-2) Urine Color (Yellow) Urine Appearance (Clear) Urine pH (5.0-8.0) Ur Specific Laughlin (1.005-1.030) Urine Protein (Negative) Urine Glucose (UA) (Negative) Urine Ketones (Negative) Urine Occult Blood (Negative) Urine Nitrite (Negative) Urine Bilirubin (Negative) Urine Urobilinogen (0.2-1.0) Ur Leukocyte Esterase (Negative) Urine RBC (0-5) /hpf Urine WBC (0-5) /hpf Ur Epithelial Cells (0-5) /hpf Urine Bacteria (FEW) /hpf Urine Mucus (FEW) /hpf Urine HCG, Qual Negative (NEGATIVE) Result Diagrams: 02/03/19 07:55 02/03/19 07:55 Consult PN Assessment/Plan (1) Abdominal pain of unknown etiology SNOMED Code(s): 317219891 Code(s): R10.9 - UNSPECIFIED ABDOMINAL PAIN Current Visit: Yes Problem List Initiated/Reviewed/Updated: Yes Plan: 38-year-old lady with abdominal pain. Current origin unknown. Possible ruptured ovarian cyst. No evidence of surgical cause within the abdomen. - Continue supportive care - Consider transvaginal ultrasound to evaluate for ruptured ovarian cyst or follicle - Monitor for fever - Consider clear liquid diet until pain improves as patient desires - Remaining medical management per primary Surgery will sign off Genevieve Mckenzie MD General Surgery
[2019-02-03] MEDS ORDERED: Metoclopramide 10 MG/2 ML SDV IVPUSH PRN (16:28)
[2019-02-03] MEDS ORDERED: Metoclopramide 10 MG/2 ML SDV ONE (16:32)
--- NOTE | 2019-02-03 16:57 | US ---
Pelvic ultrasound: Multiple real-time images were obtained transvaginally. Comparison: Previous abdominal pelvic CT study of 02/03/19. Findings: Uterus is anteverted. Incidental nabothian cyst is present. No myometrial abnormality is seen. Endometrial thickness is 9 mm. Small amount of free fluid is seen within the cul-de-sac. Cyst is noted within the left ovary measuring 2.3 cm. Right ovary is unremarkable. Measurements: Uterus: Length 7.6 cm, AP height 3.8 cm, transverse width 4.5 cm Right ovary: 3.1 x 1.5 x 1.7 cm Left ovary: 4.6 x 2.6 x 3.2 cm Impression: 1. Small amount of free fluid within the cul-de-sac which is less in amount than seen on recent CT study performed earlier on the same day. 2. Cyst within the left ovary also slightly decreased in size from prior CT study compatible with leaking involuting cyst. 3. Incidental nabothian cyst. Diagnostic code #3
[2019-02-03] MEDS ORDERED: Ondansetron 4 MG/2 ML SDV IVPUSH PRN (18:38)
[2019-02-03] MEDS ORDERED: Ibuprofen 600 MG Tab PO SCH (21:00)
[2019-02-03] MEDS ORDERED: diphenhydrAMINE 50 MG/ML SDV IVPUSH ONE (22:50)
[2019-02-03] MEDS ORDERED: Magnesium Sulfate/Water 2 GM in Premix Bag 1 BAG IV ONE (22:52)
[2019-02-03] MEDS: Acetaminophen/HYDROcodone 325-5 MG Tab PO PRN (23:46)
[2019-02-04] MEDS: Pantoprazole 40 MG Vial IVPUSH SCH (01:49)
[2019-02-04] MEDS: D5%-0.9% NaCl w/ KCl 40 meq 1,000 ML IV SCH ×2 (01:52→10:09)
[2019-02-04] MEDS: Ketorolac 30 MG/ML SDV IVPUSH PRN ×2 (04:20→18:58)
--- NOTE | 2019-02-04 09:05 | PCM.PN ---
- General Info Date of Service: 02/04/19 Admission Dx/Problem (Free Text): Admission Diagnosis/Problem Admission Diagnosis/Problem Abdominal pain Subjective Update: Follow Up Functional Status: Reports: Pain Controlled, Tolerating Diet, Urinating. Denies : New Symptoms - Review of Systems General: Denies: Fever, Weakness, Fatigue, Malaise, Chills HEENT: Reports: No Symptoms Pulmonary: Denies: Shortness of Breath Cardiovascular: Denies: Chest Pain, Dyspnea on Exertion, Lightheadedness Gastrointestinal: Reports: Abdominal Pain. Denies: Decreased Appetite, Difficulty Swallowing, Nausea, Vomiting Genitourinary: Reports: Flank Pain. Denies: Dysuria Musculoskeletal: Reports: Back Pain. Denies: Neck Pain, Arm Pain Skin: Denies: Cyanosis, Mottled, Pallor, Diaphoresis, Bruising Neurological: Reports: Gait Disturbance. Denies: Confusion, Pre-Existing Deficit, Weakness Psychiatric: Denies: Confusion, Anxiety, Agitation, Hallucinations Systems Review Comment:: She slept on and off but feels a little better this morning. Her pain scale is 4 /10. She reports no GI issues. She looks way much better and very comfortable. She is afebrile w/o leukocytosis. Her liver enzymes are elevate this morning. - Patient Data Vitals - Most Recent: Last Vital Signs Temp 36.8 C 02/04/19 07:46 Pulse 66 02/04/19 07:46 Resp 14 02/04/19 07:46 BP 98/60 02/04/19 07:46 Pulse Ox 97 02/04/19 07:46 Weight - Most Recent: 72.711 kg I&O - Last 24 Hours: Intake & Output 02/03/19 02/04/19 02/04/19 22:59 06:59 14:59 Intake Total 500 Balance 500 Lab Results Last 24 Hours: Laboratory Results - last 24 hr 02/03/19 02/03/19 02/03/19 Range/Units 07:55 07:55 08:10 WBC 8.61 (3.98-10.04) K/mm3 RBC 5.22 (3.98-5.22) M/mm3 Hgb 15.1 (11.2-15.7) gm/L Hct 42.8 (34.1-44.9) % MCV 82.0 (79.4-94.8) fl MCH 28.9 (25.6-32.2) pg MCHC 35.3 (32.2-35.5) g/dl RDW Std Deviation 38.1 (36.4-46.3) fL Plt Count 293 (182-369) K/mm3 MPV 10.7 (9.4-12.3) fl Neut % (Auto) (34.0-71.1) % Lymph % (Auto) (19.3-51.7) % Ness % (Auto) (4.7-12.5) % Eos % (Auto) (0.7-5.8) Baso % (Auto) (0.1-1.2) % Neut # (Auto) (1.56-6.13) K/mm3 Lymph # (Auto) (1.18-3.74) K/mm3 Ness # (Auto) (0.24-0.36) K/mm3 Eos # (Auto) (0.04-0.36) K/mm3 Baso # (Auto) (0.01-0.08) K/mm3 Neutrophils % (Manual) 49 (40-60) % Band Neutrophils % 0 (0-10) % Lymphocytes % (Manual) 47 H (20-40) % Atypical Lymphs % 0 % Monocytes % (Manual) 4 (2-10) % Eosinophils % (Manual) 0 L (0.7-5.8) % Basophils % (Manual) 0 L (0.1-1.2) Platelet Estimate Adequate Polychromasia 1+ slight Anisocytosis 1+ slight RBC Morph Comment Abnormal Sodium 138 (136-145) mEq/L Potassium 3.3 L (3.5-5.1) mEq/L Chloride 102 (98-107) mEq/L Carbon Dioxide 23 (21-32) mEq/L Anion Gap 16.3 H (5-15) BUN 9 (7-18) mg/dL Creatinine 0.9 (0.55-1.02) mg/dL Est Cr Clr Drug Dosing 77.01 mL/min Estimated GFR (MDRD) > 60 (>60) mL/min BUN/Creatinine Ratio 10.0 L (14-18) Glucose 75 (74-106) mg/dL Calcium 9.3 (8.5-10.1) mg/dL Magnesium (1.8-2.4) mg/dl Total Bilirubin 0.4 (0.2-1.0) mg/dL AST 17 (15-37) U/L ALT 33 (14-59) U/L Alkaline Phosphatase 69 (46-116) U/L C-Reactive Protein (<1.0) mg/dL Total Protein 8.5 H (6.4-8.2) g/dl Albumin 4.6 (3.4-5.0) g/dl Globulin 3.9 gm/dL Albumin/Globulin Ratio 1.2 (1-2) Urine HCG, Qual Negative (NEGATIVE) Urine Opiates Screen (HOGZYU=593) Ur Buprenorphine Scrn (CUTOFF=10) Ur Oxycodone Screen (NLF4ME=140) Urine Methadone Screen (CMUMIJ=554) Ur Propoxyphene Screen (UREVDE=321) Ur Barbiturates Screen (FHYFHD=498) Ur Tricyclics Screen (JJAFLH=384) Ur Phencyclidine Scrn (CUTOFF=25) Ur Amphetamine Screen (DLTRRE=447) U Methamphetamines Scrn (FHJPQM=784) U Benzodiazepines Scrn (HDQJGN=819) U Cocaine Metab Screen (XVGXDJ=023) U Marijuana (THC) Screen (CUTOFF=50) 02/03/19 02/04/19 02/04/19 Range/Units 20:15 05:36 05:36 WBC 4.60 (3.98-10.04) K/mm3 RBC 4.11 (3.98-5.22) M/mm3 Hgb 11.9 (11.2-15.7) gm/L Hct 34.5 (34.1-44.9) % MCV 83.9 (79.4-94.8) fl MCH 29.0 (25.6-32.2) pg MCHC 34.5 (32.2-35.5) g/dl RDW Std Deviation 37.9 (36.4-46.3) fL Plt Count 232 (182-369) K/mm3 MPV 10.8 (9.4-12.3) fl Neut % (Auto) 39.4 (34.0-71.1) % Lymph % (Auto) 43.5 (19.3-51.7) % Ness % (Auto) 15.0 H (4.7-12.5) % Eos % (Auto) 1.7 (0.7-5.8) Baso % (Auto) 0.2 (0.1-1.2) % Neut # (Auto) 1.81 (1.56-6.13) K/mm3 Lymph # (Auto) 2.00 (1.18-3.74) K/mm3 Ness # (Auto) 0.69 H (0.24-0.36) K/mm3 Eos # (Auto) 0.08 (0.04-0.36) K/mm3 Baso # (Auto) 0.01 (0.01-0.08) K/mm3 Neutrophils % (Manual) (40-60) % Band Neutrophils % (0-10) % Lymphocytes % (Manual) (20-40) % Atypical Lymphs % % Monocytes % (Manual) (2-10) % Eosinophils % (Manual) (0.7-5.8) % Basophils % (Manual) (0.1-1.2) Platelet Estimate Polychromasia Anisocytosis RBC Morph Comment Sodium 139 (136-145) mEq/L Potassium 4.0 (3.5-5.1) mEq/L Chloride 108 H (98-107) mEq/L Carbon Dioxide 24 (21-32) mEq/L Anion Gap 11.0 (5-15) BUN 9 (7-18) mg/dL Creatinine 0.7 (0.55-1.02) mg/dL Est Cr Clr Drug Dosing 99.01 mL/min Estimated GFR (MDRD) > 60 (>60) mL/min BUN/Creatinine Ratio 12.9 L (14-18) Glucose 109 H (74-106) mg/dL Calcium 7.7 L (8.5-10.1) mg/dL Magnesium 2.4 (1.8-2.4) mg/dl Total Bilirubin 0.5 (0.2-1.0) mg/dL AST 130 H (15-37) U/L ALT 218 H (14-59) U/L Alkaline Phosphatase 70 (46-116) U/L C-Reactive Protein 0.3 (<1.0) mg/dL Total Protein 6.1 L (6.4-8.2) g/dl Albumin 3.2 L (3.4-5.0) g/dl Globulin 2.9 gm/dL Albumin/Globulin Ratio 1.1 (1-2) Urine HCG, Qual (NEGATIVE) Urine Opiates Screen Presumptive positive H (IEKGEO=251) Ur Buprenorphine Scrn Negative (CUTOFF=10) Ur Oxycodone Screen Negative (OLT9NC=345) Urine Methadone Screen Negative (DYBFOV=241) Ur Propoxyphene Screen Negative (QIIPFH=558) Ur Barbiturates Screen Negative (OBQPKG=215) Ur Tricyclics Screen Negative (WNGFHJ=679) Ur Phencyclidine Scrn Negative (CUTOFF=25) Ur Amphetamine Screen Negative (ZYWHEA=600) U Methamphetamines Scrn Negative (UOPIXE=441) U Benzodiazepines Scrn Presumptive positive H (AGJKYA=210) U Cocaine Metab Screen Negative (IFTRCT=268) U Marijuana (THC) Screen Negative (CUTOFF=50) Med Orders - Current: Current Medications Acetaminophen (Tylenol) 650 mg PO Q4H PRN PRN Reason: Pain (Mild 1-3)/fever Hydrocodone Bitart/Acetaminophen ([place] 325-5 Mg) 1 tab PO Q4H PRN PRN Reason: Pain (moderate 4-6) Last Admin: 02/03/19 23:46 Dose: 1 tab Albuterol/Ipratropium (Duoneb 3.0-0.5 Mg/3 Ml) 3 ml NEB Q4H PRN PRN Reason: Shortness Of Breath/wheezing Bisacodyl (Dulcolax) 5 mg PO DAILY PRN PRN Reason: Constipation Docusate Sodium (Colace) 100 mg PO BID PRN PRN Reason: Constipation Hydromorphone HCl (Dilaudid) 2 mg IVPUSH Q4H PRN PRN Reason: Pain Potassium Chloride/Dextrose/Sod Cl (D5 Ns With 40 Meq Kcl) 1,000 mls @ 125 mls/ hr IV ASDIRECTED MARYAM Last Admin: 02/04/19 01:52 Dose: 125 mls/hr Ketorolac Tromethamine (Toradol) 30 mg IVPUSH Q6H PRN PRN Reason: Pain (moderate 4-6) Last Admin: 02/04/19 04:20 Dose: 30 mg Lorazepam (Ativan) 1 mg IVPUSH Q4H PRN; Protocol PRN Reason: Withdrawal Symptoms Lorazepam (Ativan) 1 mg IV Q6H PRN PRN Reason: Anxiety Last Admin: 02/03/19 15:21 Dose: 1 mg Magnesium Sulfate (Pharmacy To Dose - Magnesium Replacement) 0 dose .XX ASDIRECTED PRN PRN Reason: RX TO WATCH MAG Metoclopramide HCl (Reglan) 10 mg IVPUSH Q8H PRN PRN Reason: Nausea/Vomiting Last Admin: 02/03/19 16:37 Dose: 10 mg Metoprolol Tartrate (Lopressor) 5 mg IVPUSH Q4H PRN PRN Reason: Tachycardia Miscellaneous Information (Remove Patch) 1 ea TRDERM ONETIME ONE Stop: 02/06/19 15:01 Miscellaneous Information (Remove Patch) 1 ea TRDERM Q24H MARYAM Nicotine (Habitrol) 21 mg TRDERM Q24H MARYAM Last Admin: 02/03/19 15:09 Dose: Not Given Ondansetron HCl (Zofran) 4 mg IVPUSH Q6H PRN PRN Reason: Nausea Last Admin: 02/03/19 20:38 Dose: 4 mg Pantoprazole Sodium (Protonix Iv) 40 mg IVPUSH Q12H MARYAM Stop: 02/04/19 14:31 Last Admin: 02/04/19 01:49 Dose: 40 mg Polyethylene Glycol (Miralax) 17 gm PO DAILY PRN PRN Reason: Constipation Potassium Chloride (Pharmacy To Dose - Potassium Replacement) 0 dose .XX ASDIRECTED PRN PRN Reason: RX TO WATCH K Senna/Docusate Sodium (Senna Plus) 1 tab PO BID PRN PRN Reason: Constipation Sodium Chloride (Saline Flush) 10 ml FLUSH ONETIME PRN PRN Reason: IV FLUSH Last Admin: 02/03/19 10:36 Dose: 10 ml Temazepam (Restoril) 15 mg PO BEDTIME PRN PRN Reason: Sleep Last Admin: 02/04/19 04:20 Dose: 15 mg Discontinued Medications Diatrizoate Meglum/Diatrizoate Sod (Gastrografin 37%) 120 ml PO ONETIME ONE Stop: 02/03/19 09:24 Last Admin: 02/03/19 10:36 Dose: 90 ml Diphenhydramine HCl (Benadryl) 25 mg IVPUSH ONETIME ONE Stop: 02/03/19 22:51 Last Admin: 02/03/19 23:35 Dose: 25 mg Hydromorphone HCl (Dilaudid) 1 mg IVPUSH ONETIME ONE Stop: 02/03/19 08:05 Last Admin: 02/03/19 08:17 Dose: 1 mg Hydromorphone HCl (Dilaudid) 1 mg IVPUSH ONETIME ONE Stop: 02/03/19 09:09 Last Admin: 02/03/19 09:13 Dose: 1 mg Hydromorphone HCl (Dilaudid) Confirm Administered Dose 2 mg .ROUTE .STK-MED ONE Stop: 02/03/19 14:04 Last Admin: 02/03/19 14:08 Dose: 2 mg Hydromorphone HCl (Dilaudid) 2 mg IVPUSH ONETIME ONE Stop: 02/03/19 14:06 Last Admin: 02/03/19 14:33 Dose: Not Given Sodium Chloride (Normal Saline) 1,000 mls @ 150 mls/hr IV ASDIRECTED [facility] Last Admin: 02/03/19 08:19 Dose: 150 mls/hr Magnesium Sulfate 2 gm/ Premix 50 mls @ 25 mls/hr IV ONETIME ONE Stop: 02/04/19 00:51 Last Admin: 02/03/19 23:37 Dose: 25 mls/hr Ibuprofen (Motrin) 600 mg PO TID@0700,1400,2100 [facility] Stop: 02/06/19 14:01 Iopamidol (Isovue-370 (76%)) 200 ml IV ONETIME ONE Stop: 02/03/19 09:24 Last Admin: 02/03/19 10:36 Dose: 100 ml Metoclopramide HCl (Reglan) 10 mg IVPUSH ONETIME STA Stop: 02/03/19 10:20 Last Admin: 02/03/19 10:22 Dose: 10 mg Metoclopramide HCl (Reglan) Confirm Administered Dose 10 mg .ROUTE .STK-MED ONE Stop: 02/03/19 16:33 Last Admin: 02/03/19 16:38 Dose: Not Given Ondansetron HCl (Zofran) 4 mg IVPUSH ONETIME ONE Stop: 02/03/19 08:05 Last Admin: 02/03/19 08:15 Dose: 4 mg Ondansetron HCl (Zofran) 4 mg IVPUSH ONETIME ONE Stop: 02/03/19 09:09 Last Admin: 02/03/19 09:13 Dose: 4 mg Pantoprazole Sodium (Protonix Iv) 40 mg IVPUSH ONETIME ONE Stop: 02/03/19 14:17 Last Admin: 02/03/19 15:50 Dose: Not Given Scopolamine (Transderm-Scop) 1.5 mg TRDERM Q72H ONE Stop: 02/03/19 14:23 Last Admin: 02/03/19 15:08 Dose: 1.5 mg - Exam General: Alert, Oriented, Cooperative, No Acute Distress HEENT: Pupils Equal, Pupils Reactive, EOMI, Mucous Membr. Moist/[place] Neck: Supple Lungs: Clear to Auscultation, Normal Respiratory Effort Cardiovascular: Regular Rate, Regular Rhythm GI/Abdominal Exam: Normal Bowel Sounds, Soft, No Organomegaly, No Distention, No Abnormal Bruit, Tender (mild tenderness on right lower quandrant), Other ( negative for Psoas and Espinosa's sign). No: Guarding, Rigid, Rebound, Abnormal Bowel Sounds, Hernia, Mass, Hepatomegaly, Splenomegaly (Female) Exam: Deferred Back Exam: Normal Inspection, Decreased Range of Motion Extremities: Normal Inspection, Non-Tender, No Pedal Edema, Normal Capillary Refill, Limited Range of Motion. No: You's Sign, Leg Pain Peripheral Pulses: 2+: Dorsalis Pedis (L), Dorsalis Pedis (R) Skin: Warm, Dry, Intact Neurological: No New Focal Deficit (limited but to discomfort/pain with movement ). No: Normal Gait Psy/Mental Status: Alert, Normal Affect, Normal Mood - Problem List Review Problem List Initiated/Reviewed/Updated: Yes - My Orders Last 24 Hours: My Active Orders 02/03/19 14:11 Consult to Physician [CONS] Routine 02/03/19 14:12 Notify Provider Consults [RC] DAILY 02/03/19 14:14 LORazepam [Ativan] 1 mg IVPUSH Q4H PRN Metoprolol Tartrate [Lopressor] 5 mg IVPUSH Q4H PRN 02/03/19 14:15 Pharmacy to Dose - Magnesium R [Pharmacy to Dose - Magnesium Replacement] 0 dose .XX ASDIRECTED PRN Pharmacy to Dose - Potassium R [Pharmacy to Dose - Potassium Replacement] 0 dose .XX ASDIRECTED PRN 02/03/19 14:17 Height and Weight [RC] 04 Intake and Output [RC] 04,16 Up With Assistance [RC] DAILY Up ad Sheila [RC] DAILY Vital Signs [RC] Q4H Consult to Spiritual Care [CONS] Routine Acetaminophen [Tylenol] 650 mg PO Q4H PRN Acetaminophen/HYDROcodone [[place] 325-5 MG] 1 tab PO Q4H PRN Albuterol/Ipratropium [DuoNeb 3.0-0.5 MG/3 ML] 3 ml NEB Q4H PRN Bisacodyl [Dulcolax] 5 mg PO DAILY PRN Docusate Sodium [Colace] 100 mg PO BID PRN Docusate Sodium/Sennosides [Senna Plus] 1 tab PO BID PRN Ketorolac [Toradol] 30 mg IVPUSH Q6H PRN LORazepam [Ativan] 1 mg IV Q6H PRN Polyethylene Glycol 3350 [MiraLAX] 17 gm PO DAILY PRN Temazepam [Restoril] 15 mg PO BEDTIME PRN Sequential Compression Device [OM.PC] Per Unit Routine Resuscitation Status Routine 02/03/19 14:20 RT Aerosol Therapy [RC] ASDIRECTED 02/03/19 14:30 D5%-0.9% NaCl w/ KCl 40 meq [D5 NS with 40 mEq KCl] 1,000 ml IV ASDIRECTED Pantoprazole [ProTONIX IV] 40 mg IVPUSH Q12H 02/03/19 14:33 HYDROmorphone [Dilaudid] 2 mg IVPUSH Q4H PRN 02/03/19 15:00 Nicotine [Habitrol] 21 mg TRDERM Q24H 02/03/19 16:28 Metoclopramide [Reglan] 10 mg IVPUSH Q8H PRN 02/03/19 18:38 Ondansetron [Zofran] 4 mg IVPUSH Q6H PRN 02/03/19 20:15 BENZOD[place]ZEPINES CONF, UR Stat OXYCODONE SCREEN Stat 02/03/19 Dinner Regular Diet [DIET] 02/04/19 15:00 Remove Patch 1 ea TRDERM Q24H 02/05/19 05:11 C-REACTIVE PROTEIN [CHEM] AM CBC WITH AUTO DIFF [HEME] AM COMPREHENSIVE METABOLIC PN,CMP [CHEM] AM MAGNESIUM [CHEM] AM 02/06/19 05:11 C-REACTIVE PROTEIN [CHEM] AM CBC WITH AUTO DIFF [HEME] AM COMPREHENSIVE METABOLIC PN,CMP [CHEM] AM MAGNESIUM [CHEM] AM 02/06/19 15:00 Remove Patch 1 kevon BROWER ONETIME ONE 02/07/19 05:11 C-REACTIVE PROTEIN [CHEM] AM CBC WITH AUTO DIFF [HEME] AM COMPREHENSIVE METABOLIC PN,CMP [CHEM] AM MAGNESIUM [CHEM] AM - Plan Plan:: Assessment/Plan: Acute: Right Lower Abdominal with Back Pain - Likely 2/2 Ruptured Ovarian Cysts and MSK - Afebrile w/o leukocytosis - Sudden in onset and no prior hx/o of it - LMP: January 20-normal per patient - No recent trauma or injury; No strenuous activities - CT scan of the abdomen/pelvis: free fluid within the pelvis most likely due to follicle or nonvisualized cyst rupture. Incidental cyst within the left ovary measuring 2.5 cm is seen. Small hiatal hernia and VANITA of contrast. - No stones noted on imaging and UA is negative for UTI - HcG screening negative; last sexual contact 2 week ago - DDx: Appendicitis (unlikely), MSK, Ruptures Cysts, Endometriosis - GS consult with Dr. Castillo; felt it was appendix in etiology - Transvaginal U/S Transaminitis - 2/2 Iatrogenic or Medications Induced - NSAIDs, Benzos and Narcotics - Plans to cut down and continue with hydration - Monitor and avoid acetaminophen Small Hiatal Hernia - CT scan finding - PPI Nicotine Dependence - Smokes 1/2 ppd - Nicotine Patch Daily Chronic: GERD Ovarian Cysts Cholecystectomy [id number] Lipoma Resection Plan: She is clinically much better Continue regular diet Routine AM labs Discontinue D5WNS w/ 40mEq KCl at 125 cc/hr once done Anti-emetic medications plus Scopolamine Patch x1 now PRN Pain Medications: Narcotics and NSAIDS Flexeril 5 mg po BID for muscle relaxant May use heating pad PT/OT consult for further eval and treatment Activity ad sheila Possible d/c in AM Ambulated as tolerated SW/CM for d/c planning Updated significant other with her permission regarding patient's morning labs, diagnoses, treatment and discharge care plan.
[2019-02-04] MEDS: Acetaminophen/HYDROcodone 325-5 MG Tab PO PRN ×3 (10:09→23:10)
[2019-02-04] MEDS ORDERED: Cyclobenzaprine 10 MG Tab PO SCH (12:00)
[2019-02-04] MEDS: Cyclobenzaprine 10 MG Tab PO PRN ×2 (12:36→21:00)
[2019-02-04] MEDS: Nicotine 21 MG/24 Hr Patch TRDERM SCH (14:11)
[2019-02-05] MEDS: Acetaminophen/HYDROcodone 325-5 MG Tab PO PRN ×2 (05:20→10:14)
[2019-02-05] MEDS: Ketorolac 30 MG/ML SDV IVPUSH PRN (06:24)
[2019-02-05] MEDS ORDERED: Pantoprazole 40 MG Tab.CR PO SCH (07:00)
[2019-02-05] MEDS ORDERED: Magnesium Oxide 400 MG Tab PO ONE (09:00)
[2019-02-05] MEDS: Cyclobenzaprine 10 MG Tab PO PRN (09:32)
--- NOTE | 2019-02-05 11:26 | PCM.DCSUM1 ---
Discharge Summary - Hospital Course HPI Initial Comments: This is a 38 yo white female with past medical hx/o GERD, Ovarian Cysts, Cholecystectomy [id number], Lipoma Resection and Nicotine Dependence who comes in for sudden onset of generalized abdominal pain that started at about 1400 yesterday. At that time, it did not bother her much so she took a nap in an anticipation that it will go away. By 1900, her pain seems to have worsen to her right lower quadrant and right flank. She describes her pain as sharp and stabbing in nature and is made worse with movement. Her pain later followed by nausea, vomiting and a one time episode of watery diarrhea prior to coming in to ED. She denies any issues. No dysuria or hematuria. Her last sexual contact with her /partner was 2 weeks ago and her LMP was on 20 of January. She further denies any recent trauma or injury. She still has her appendix but gallbladder. Her initial work up in ED shows a CBC remarkable for Lymphocytes of 47%. Her chemistry is significant for K of 3.3, AG of 16.3, and Total Protein of 8.5. Her UA is not suggestive of UTI. UDS is consistent with what she receives for treatment: opiates and benzos. Her CT scan report of the abdomen/pelvis reads free fluid within the pelvis most likely due to follicle or nonvisualized cyst rupture. Incidental cyst within the left ovary measuring 2.5 cm is seen. Small hiatal hernia and VANITA of contrast. Patient is being admitted for acute abdominal pain unclear in etiology. Diagnosis: Stroke: No - Discharge Data Discharge Date: 02/05/19 Discharge Disposition: Home, Self-Care 01 Condition: Good - Discharge Diagnosis/Problem(s) (1) Ruptured ovarian cyst SNOMED Code(s): 95283579 ICD Code: N83.209 - UNSPECIFIED OVARIAN CYST, UNSPECIFIED SIDE Status: Acute (2) Abdominal pain SNOMED Code(s): 62115121 ICD Code: R10.9 - UNSPECIFIED ABDOMINAL PAIN Status: Resolved (3) Musculoskeletal pain SNOMED Code(s): 011840560 ICD Code: M79.18 - MYALGIA, OTHER SITE Status: Resolved (4) Sciatica SNOMED Code(s): 22984805 ICD Code: M54.30 - SCIATICA, UNSPECIFIED SIDE Status: Acute (5) Hypokalemia SNOMED Code(s): 13752659 ICD Code: E87.6 - HYPOKALEMIA Status: Resolved (6) Nausea & vomiting SNOMED Code(s): 79616483 ICD Code: R11.2 - NAUSEA WITH VOMITING, UNSPECIFIED Status: Resolved (7) Transaminitis SNOMED Code(s): 046891720, 949934637 ICD Code: R74.0 - NONSPEC ELEV OF LEVELS OF TRANSAMNS & LACTIC ACID DEHYDRGNSE Status: Acute - Patient Summary/Data Operative Procedure(s) Performed: None Complications: None Consults: Consultations 02/03/19 14:11 Consult to Physician [CONS] Routine 02/03/19 14:17 Consult to Spiritual Care [CONS] Routine 02/04/19 11:38 Consult to Occupational Therapy [OT Evaluation and Treatment] [CONS] Routine PT Evaluation and Treatment [CONS] Routine Labs Pending at D/C: None Recommended Follow-up Testing/Procedures: None Planned Operative Procedure(s) after DC: None - Patient Instructions Diet: Usual Diet as Tolerated Activity: As Tolerated Driving: Do Not Drive Showering/Bathing: May Shower Notify Provider of: Fever, Increased Pain, Swelling and Redness, Nausea and/or Vomiting Other/Special Instructions: - Please take all new medications as directed. - Resume routine home medcations. - Continue rotuine activites as per PT/OT. - Absolutely avoid alcohol while on these new medications! - Be careful operating any motor vehicles or machines while taking all these new medications. These medications can all impair your level of alertness let alone makes you somnolent or dizzy. - Continue to follow the home exercise provided to you to imrpove your mobility and range of motion. - Call your PCP for any questions or concerns after discharge. - Follow up with your Primary car Provider (PCP) in 1 week. - Come back or seek immediate care at the nearest medical facility should your symptoms persist or get worse - Discharge Plan *PRESCRIPTION DRUG MONITORING PROGRAM REVIEWED*: Not Applicable *COPY OF PRESCRIPTION DRUG MONITORING REPORT IN PATIENT BRIANNE: Not Applicable Prescriptions/Med Rec: Baclofen 5 mg PO Q8H PRN #90 tablet PRN Reason: Muscle Relaxant Gabapentin [Neurontin] 100 mg PO BID #60 capsule Hydrocodone/Acetaminophen [[place]burn 5-325 Tablet] 1 each PO Q8H PRN #15 tablet PRN Reason: MSK and Abdominal Pain Lidocain/Me-Salicyl/Caps/Menth [1St Medx-Patch] 1 each TP DAILY PRN #7 adh..patch PRN Reason: Sciatica/Back Pain Sennosides/Docusate Sodium [Senna-S] 1 each PO BEDTIME #30 tablet Home Medications: Home Meds Baclofen 5 mg PO Q8H PRN #90 tablet 02/04/19 [Rx] Gabapentin [Neurontin] 100 mg PO BID #60 capsule 02/04/19 [Rx] Hydrocodone/Acetaminophen [Washburn 5-325 Tablet] 1 each PO Q8H PRN #15 tablet 08/15 [Rx] Lidocain/Me-Salicyl/Caps/Menth [1St Medx-Patch] 1 each TP DAILY PRN #7 adh..patch 02/04/19 [Rx] Sennosides/Docusate Sodium [Senna-S] 1 each PO BEDTIME #30 tablet 02/04/19 [Rx] Patient Handouts: Hypokalemia, Radicular Pain, Sciatica, [id number], Nausea and Vomiting, Adult, [id number], Abdominal Pain, Adult, [id number], Ovarian Cyst, [id number], Musculoskeletal Pain, Ovarian Cyst, Steps to Quit Smoking Referrals: Franco Guthrie MD [Physician] - 02/11/19 8:30 am (Please follow-up with primary care provider as scheduled, SaturdayFebruary 11 at 0830am. ) - Discharge Summary/Plan Comment DC Time >30 min.: No Discharge Summary/Plan Comment: Discharge to Home - General Info Date of Service: 02/05/19 Admission Dx/Problem (Free Text: Admission Diagnosis/Problem Admission Diagnosis/Problem Abdominal pain Subjective Update: Follow Up Functional Status: Reports: Pain Controlled, Tolerating Diet, Ambulating, Urinating. Denies: New Symptoms Numeric/FACES Score: 4 - Review of Systems General: Denies: Fever, Weakness, Fatigue, Malaise HEENT: Reports: No Symptoms Pulmonary: Denies: Shortness of Breath Cardiovascular: Denies: Chest Pain, Dyspnea on Exertion, Lightheadedness Gastrointestinal: Denies: Abdominal Pain, Decreased Appetite, Difficulty Swallowing, Nausea, Vomiting Genitourinary: Reports: Flank Pain (mild) Musculoskeletal: Reports: Back Pain Skin: Denies: Cyanosis, Mottled, Pallor, Diaphoresis, Bruising Neurological: Reports: Pre-Existing Deficit, Tingling. Denies: Confusion, Dizziness, Headache, Numbness, Paresthesia, Tremors, Difficulty Walking, Weakness, Gait Disturbance Psychiatric: Denies: Depression, Anxiety, Agitation, Hallucinations, Suicidal Ideation Systems Review Comment: No significant overnight or acute issues. She rested very well and has no acute issues. Her pain is well controlled. She has been ambulating w/o any trouble. She is also tolerating her diet. Her morning liver enzymes are much improved. She has no complaints this morning. - Patient Data Vitals - Most Recent: Last Vital Signs Temp 36.6 C 02/05/19 08:33 Pulse 63 02/05/19 08:33 Resp 20 02/05/19 08:33 BP 105/57 L 02/05/19 08:33 Pulse Ox 99 02/05/19 08:33 Weight - Most Recent: 73.981 kg I&O - Last 24 hours: Intake & Output 02/04/19 02/05/19 02/05/19 22:59 06:59 14:59 Intake Total 1520 1600 240 Output Total 1300 2400 Balance 220 -800 240 Lab Results - Last 24 hrs: Laboratory Results - last 24 hr 02/05/19 02/05/19 Range/Units 05:55 05:55 WBC 5.05 (3.98-10.04) K/mm3 RBC 4.28 (3.98-5.22) M/mm3 Hgb 12.1 (11.2-15.7) gm/L Hct 36.7 (34.1-44.9) % MCV 85.7 (79.4-94.8) fl MCH 28.3 (25.6-32.2) pg MCHC 33.0 (32.2-35.5) g/dl RDW Std Deviation 39.5 (36.4-46.3) fL Plt Count 228 (182-369) K/mm3 MPV 10.8 (9.4-12.3) fl Neut % (Auto) 34.0 (34.0-71.1) % Lymph % (Auto) 52.5 H (19.3-51.7) % [place] % (Auto) 9.1 (4.7-12.5) % Eos % (Auto) 4.0 (0.7-5.8) Baso % (Auto) 0.2 (0.1-1.2) % Neut # (Auto) 1.72 (1.56-6.13) K/mm3 Lymph # (Auto) 2.65 (1.18-3.74) K/mm3 [place] # (Auto) 0.46 H (0.24-0.36) K/mm3 Eos # (Auto) 0.20 (0.04-0.36) K/mm3 Baso # (Auto) 0.01 (0.01-0.08) K/mm3 Sodium 138 (136-145) mEq/L Potassium 4.2 (3.5-5.1) mEq/L Chloride 104 (98-107) mEq/L Carbon Dioxide 25 (21-32) mEq/L Anion Gap 13.2 (5-15) BUN 6 L (7-18) mg/dL Creatinine 0.8 (0.55-1.02) mg/dL Est Cr Clr Drug Dosing 86.64 mL/min Estimated GFR (MDRD) > 60 (>60) mL/min BUN/Creatinine Ratio 7.5 L (14-18) Glucose 85 (74-106) mg/dL Calcium 8.3 L (8.5-10.1) mg/dL Magnesium 1.7 L (1.8-2.4) mg/dl Total Bilirubin 0.3 (0.2-1.0) mg/dL AST 48 H (15-37) U/L ALT 153 H (14-59) U/L Alkaline Phosphatase 65 (46-116) U/L C-Reactive Protein < 0.2 (<1.0) mg/dL Total Protein 6.3 L (6.4-8.2) g/dl Albumin 3.3 L (3.4-5.0) g/dl Globulin 3.0 gm/dL Albumin/Globulin Ratio 1.1 (1-2) Med Orders - Current: Current Medications Acetaminophen (Tylenol) 650 mg PO Q4H PRN PRN Reason: Pain (Mild 1-3)/fever Hydrocodone Bitart/Acetaminophen ([place] 325-5 Mg) 1 tab PO Q4H PRN PRN Reason: Pain (moderate 4-6) Last Admin: 02/05/19 10:14 Dose: 1 tab Albuterol/Ipratropium (Duoneb 3.0-0.5 Mg/3 Ml) 3 ml NEB Q4H PRN PRN Reason: Shortness Of Breath/wheezing Bisacodyl (Dulcolax) 5 mg PO DAILY PRN PRN Reason: Constipation Cyclobenzaprine HCl (Flexeril) 5 mg PO BID PRN PRN Reason: Muscle Spasm Last Admin: 02/05/19 09:32 Dose: 5 mg Docusate Sodium (Colace) 100 mg PO BID PRN PRN Reason: Constipation Hydromorphone HCl (Dilaudid) 2 mg IVPUSH Q4H PRN PRN Reason: Pain Ketorolac Tromethamine (Toradol) 30 mg IVPUSH Q6H PRN PRN Reason: Pain (moderate 4-6) Last Admin: 02/05/19 06:24 Dose: 30 mg Lorazepam (Ativan) 1 mg IVPUSH Q4H PRN; Protocol PRN Reason: Withdrawal Symptoms Lorazepam (Ativan) 1 mg IV Q6H PRN PRN Reason: Anxiety Last Admin: 02/03/19 15:21 Dose: 1 mg Magnesium Sulfate (Pharmacy To Dose - Magnesium Replacement) 0 dose .XX ASDIRECTED PRN PRN Reason: RX TO WATCH MAG Metoclopramide HCl (Reglan) 10 mg IVPUSH Q8H PRN PRN Reason: Nausea/Vomiting Last Admin: 02/03/19 16:37 Dose: 10 mg Metoprolol Tartrate (Lopressor) 5 mg IVPUSH Q4H PRN PRN Reason: Tachycardia Miscellaneous Information (Remove Patch) 1 ea TRDERM ONETIME ONE Stop: 02/06/19 15:01 Miscellaneous Information (Remove Patch) 1 ea TRDERM Q24H MARYAM Last Admin: 02/04/19 14:11 Dose: Not Given Nicotine (Habitrol) 21 mg TRDERM Q24H MARYAM Last Admin: 02/04/19 14:11 Dose: Not Given Ondansetron HCl (Zofran) 4 mg IVPUSH Q6H PRN PRN Reason: Nausea Last Admin: 02/03/19 20:38 Dose: 4 mg Pantoprazole Sodium (Protonix) 40 mg PO DAILY@0700 [facility] Last Admin: 02/05/19 06:20 Dose: 40 mg Polyethylene Glycol (Miralax) 17 gm PO DAILY PRN PRN Reason: Constipation Potassium Chloride (Pharmacy To Dose - Potassium Replacement) 0 dose .XX ASDIRECTED PRN PRN Reason: RX TO WATCH K Senna/Docusate Sodium (Senna Plus) 1 tab PO BID PRN PRN Reason: Constipation Sodium Chloride (Saline Flush) 10 ml FLUSH ONETIME PRN PRN Reason: IV FLUSH Last Admin: 02/03/19 10:36 Dose: 10 ml Temazepam (Restoril) 15 mg PO BEDTIME PRN PRN Reason: Sleep Last Admin: 02/04/19 04:20 Dose: 15 mg Discontinued Medications Cyclobenzaprine HCl (Flexeril) 5 mg PO BID [facility] Diatrizoate Meglum/Diatrizoate Sod (Gastrografin 37%) 120 ml PO ONETIME ONE Stop: 02/03/19 09:24 Last Admin: 02/03/19 10:36 Dose: 90 ml Diphenhydramine HCl (Benadryl) 25 mg IVPUSH ONETIME ONE Stop: 02/03/19 22:51 Last Admin: 02/03/19 23:35 Dose: 25 mg Hydromorphone HCl (Dilaudid) 1 mg IVPUSH ONETIME ONE Stop: 02/03/19 08:05 Last Admin: 02/03/19 08:17 Dose: 1 mg Hydromorphone HCl (Dilaudid) 1 mg IVPUSH ONETIME ONE Stop: 02/03/19 09:09 Last Admin: 02/03/19 09:13 Dose: 1 mg Hydromorphone HCl (Dilaudid) Confirm Administered Dose 2 mg .ROUTE .STK-MED ONE Stop: 02/03/19 14:04 Last Admin: 02/03/19 14:08 Dose: 2 mg Hydromorphone HCl (Dilaudid) 2 mg IVPUSH ONETIME ONE Stop: 02/03/19 14:06 Last Admin: 02/03/19 14:33 Dose: Not Given Sodium Chloride (Normal Saline) 1,000 mls @ 150 mls/hr IV ASDIRECTED MARYAM Last Admin: 02/03/19 08:19 Dose: 150 mls/hr Potassium Chloride/Dextrose/Sod Cl (D5 Ns With 40 Meq Kcl) 1,000 mls @ 125 mls/ hr IV ASDIRECTED [facility] Last Admin: 02/04/19 10:09 Dose: 125 mls/hr Magnesium Sulfate 2 gm/ Premix 50 mls @ 25 mls/hr IV ONETIME ONE Stop: 02/04/19 00:51 Last Admin: 02/03/19 23:37 Dose: 25 mls/hr Ibuprofen (Motrin) 600 mg PO TID@0700,1400,2100 [facility] Stop: 02/06/19 14:01 Iopamidol (Isovue-370 (76%)) 200 ml IV ONETIME ONE Stop: 02/03/19 09:24 Last Admin: 02/03/19 10:36 Dose: 100 ml Magnesium Oxide (Magnesium Oxide) 800 mg PO ONETIME ONE Stop: 02/05/19 09:01 Last Admin: 02/05/19 08:36 Dose: 800 mg Metoclopramide HCl (Reglan) 10 mg IVPUSH ONETIME STA Stop: 02/03/19 10:20 Last Admin: 02/03/19 10:22 Dose: 10 mg Metoclopramide HCl (Reglan) Confirm Administered Dose 10 mg .ROUTE .STK-MED ONE Stop: 02/03/19 16:33 Last Admin: 02/03/19 16:38 Dose: Not Given Ondansetron HCl (Zofran) 4 mg IVPUSH ONETIME ONE Stop: 02/03/19 08:05 Last Admin: 02/03/19 08:15 Dose: 4 mg Ondansetron HCl (Zofran) 4 mg IVPUSH ONETIME ONE Stop: 02/03/19 09:09 Last Admin: 02/03/19 09:13 Dose: 4 mg Pantoprazole Sodium (Protonix Iv) 40 mg IVPUSH ONETIME ONE Stop: 02/03/19 14:17 Last Admin: 02/03/19 15:50 Dose: Not Given Pantoprazole Sodium (Protonix Iv) 40 mg IVPUSH Q12H [facility] Stop: 02/04/19 14:31 Last Admin: 02/04/19 01:49 Dose: 40 mg Scopolamine (Transderm-Scop) 1.5 mg TRDERM Q72H ONE Stop: 02/03/19 14:23 Last Admin: 02/03/19 15:08 Dose: 1.5 mg - Exam General: Reports: Alert, Oriented, Cooperative, No Acute Distress HEENT: Reports: Pupils Equal, Pupils Reactive, EOMI, Mucous Membr. Moist/[place] Neck: Reports: Supple Lungs: Reports: Clear to Auscultation, Normal Respiratory Effort Cardiovascular: Reports: Regular Rate, Regular Rhythm GI/Abdominal Exam: Normal Bowel Sounds, Soft, Non-Tender, No Organomegaly, No Distention, No Abnormal Bruit (Female) Exam: Deferred Rectal (Female) Exam: Deferred Back Exam: Reports: Normal Inspection, Decreased Range of Motion, Vertebral Tenderness Extremities: Normal Inspection, Normal Range of Motion, Non-Tender, No Pedal Edema, Normal Capillary Refill, Other (ROM: active and passive much improved) Skin: Reports: Warm, Dry, Intact Neurological: Reports: No New Focal Deficit, Normal Gait Psy/Mental Status: Reports: Alert, Normal Affect, Normal Mood
== END 2019-02-05 12:45 | disposition home or self-care (01) ==
LOC: JD.ED 07:31 → JD.MS 12:20
PROVIDERS: ADMIT Internal Medicine; ATTEND Internal Medicine
DX: R10.84 Generalized abdominal pain (principal); N83.202 Unspecified ovarian cyst, left side; N80.9 Endometriosis, unspecified; E87.6 Hypokalemia; R11.2 Nausea with vomiting, unspecified; R74.0 Nonspecific elevation of levels of transaminase and lactic acid dehydrogenase [LDH]; K21.9 Gastro-esophageal reflux disease without esophagitis; K44.9 Diaphragmatic hernia without obstruction or gangrene; F17.210 Nicotine dependence, cigarettes, uncomplicated; M79.18 Myalgia, other site; M54.30 Sciatica, unspecified side; Z90.49 Acquired absence of other specified parts of digestive tract; Z91.048 Other nonmedicinal substance allergy status; Z79.899 Other long term (current) drug therapy
CPT/HCPCS: 36415; 74177; 76830; 80053; 80306; 80307; 80346; 81001; 81025; 83735; 85007; 85025; 85027; 86140; 96361; 96365; 96366; 96375; 96376; 97110; 97161; 97165; 99285; A9270; C9113; G0378; J1170; J1200; J1885; J2060; J2405; J2765; J3475; J3480; J7040; Q9963; Q9967; 96374

== ENCOUNTER 2020-01-21 06:01 | Emergency (ER) | payer BC, OTHER ==
--- NOTE | 2020-01-21 06:15 | EDM.PDOC ---
ED HPI GENERAL MEDICAL PROBLEM - General Chief Complaint: Chest Pain Stated Complaint: CHEST PAIN/TEMP/COUGH/DIARRHEA Time Seen by Provider: 01/21/20 06:13 - History of Present Illness INITIAL COMMENTS - FREE TEXT/NARRATIVE: 39-year-old female presents the emergency room with cough fevers chest pain and diarrhea This started yesterday morning. She had a loose stool yesterday morning none since then. She is got a frequent dry nonproductive cough. She has had fevers as high as 101.7 at home. At this point she has some right-sided chest pain along the anterior and lateral ribs. This right-sided chest pain is aggravated by deep breathing. She denies any abdominal pain no nausea vomiting. She denies any burning or frequency with urination. She also denies any possibility of being . Chest Pain Score (Numeric/FACES): 8 - Related Data Allergies Allergy/AdvReac Type Severity Reaction Status Date / Time alcohol Allergy Blisters Verified 01/21/20 06:12 [From Mastisol Liquid Adhesive] gum mastic Allergy Blisters Verified 01/21/20 06:12 [From Mastisol Liquid Adhesive] methyl salicylate Allergy Blisters Verified 01/21/20 06:12 [From Mastisol Liquid Adhesive] storax Allergy Blisters Verified 01/21/20 06:12 [From Mastisol Liquid Adhesive] surgical glue Allergy Blisters Uncoded 02/03/19 08:39 Home Meds: Home Meds . [No Known Home Meds] 01/21/20 [History] Past Medical History Gastrointestinal History: Reports: GERD Genitourinary History: Reports: UTI, Recurrent [employer]IST History: Reports: Other (See Below) (Ovarian cysts) Musculoskeletal History: Reports: Fracture (left foot) Psychiatric History: Reports: Anxiety Hematologic History: Reports: Anemia Other Hematologic History: during . - Infectious Disease History Infectious Disease History: Reports: Chicken Pox - Past Surgical History HEENT Surgical History: Reports: Eye Surgery (left, for strabismus), Oral Surgery (wisdom teeth extraction), Other (See Below) (mandible cyst excision) GI Surgical History: Reports: Cholecystectomy (around 2012 or 2013) Musculoskeletal Surgical History: Reports: ORIF (left foot) Dermatological Surgical History: Reports: Other (See Below) (Lipoma excised off back) Social & Family History - Family History Family Medical History: Noncontributory Cardiac: Reports: None Respiratory: Reports: None GI: Reports: None Endocrine/Metabolic: Reports: None - Caffeine Use Caffeine Use: Reports: Soda - Living Situation & Occupation Living situation: Reports: , with Significant Other (Boyfriend), with Family (Son) 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 Denies : Wheezing, Sputum Cardiovascular: Reports: No Symptoms Endocrine: Reports: No Symptoms GI/Abdominal: Reports: No Symptoms : Reports: No Symptoms Musculoskeletal: Reports: No Symptoms Skin: Reports: No Symptoms Neurological: Reports: No Symptoms Psychiatric: Reports: No Symptoms ED EXAM, GENERAL - Physical Exam Exam: See Below Exam Limited By: No Limitations General Appearance: Alert, No Apparent Distress Eye Exam: Bilateral Eye: Normal Inspection Ears: Normal External Exam, Normal Canal, Hearing Grossly Normal, Normal TMs Nose: Normal Inspection, Normal Mucosa, No Blood Throat/Mouth: Normal Inspection, Normal Lips, Normal Teeth, Normal Gums, Normal Oropharynx, Normal Voice, No Airway Compromise Head: Atraumatic, Normocephalic Neck: Normal Inspection, Supple, Non-Tender, Full Range of Motion Respiratory/Chest: No Respiratory Distress, Lungs Clear Cardiovascular: Regular Rate, Rhythm, No Edema, No Murmur, Tachycardia GI/Abdominal: Normal Bowel Sounds, Soft, Non-Tender Back Exam: Normal Inspection. No: CVA Tenderness (L), CVA Tenderness (R) Extremities: Normal Inspection, No Pedal Edema Neurological: Alert, Oriented, Normal Cognition Skin Exam: Warm, Dry, Intact, Normal Color, No Rash EKG INTERPRETATION EKG Date: 01/21/20 Rhythm: NSR Rate (Beats/Min): 94 [place]: Normal P-Wave: Present QRS: Other (Normal morphology, early transition) ST-T: Normal QT: Normal Comparison: NA - No Prior EKG EKG Interpretation Comments: Normal EKG Course - Vital Signs Last Recorded V/S: Last Vital Signs Temp 37.1 C 01/21/20 06:07 Pulse 94 01/21/20 06:07 Resp 16 01/21/20 06:07 BP 141/87 H 01/21/20 06:07 Pulse Ox 100 01/21/20 06:07 - Orders/Labs/Meds Orders: Active Orders 24 hr Category Date Time Status EKG Documentation Completion [RC] STAT Care 01/21/20 06:26 Active Chest 1V Frontal [CR] Stat Exams 01/21/20 06:26 Taken CORONAVIRUS COVID-19 PCR PHL [MREF] Stat Lab 01/21/20 06:56 Received Isolation [COMM] Routine Oth 01/21/20 06:29 Ordered Labs: Laboratory Tests 01/21/20 Range/Units 06:56 D-Dimer, Quantitative 0.35 (0.19-0.50) mg/L - Re-Assessments/Exams Free Text/Narrative Re-Assessment/Exam: 01/21/20 08:02 Chest x-ray appears not to have any acute cardiopulmonary changes no other abnormalities noted. EKG is essentially normal. Influenza screen is negative coronavirus test is pending. Departure - Departure Time of Disposition: 08:03 Disposition: Home, Self-Care 01 Clinical Impression: Viral syndrome - Discharge Information Referrals: PCP,None [Primary Care Provider] - Forms: ED Department Discharge, ED Return to Work/School Form Additional Instructions: Return to the emergency room with any questions problems or worsening symptoms. Push lots of fluids. Use Tylenol for aches pains and fever control. Do not use Motrin ibuprofen naproxen. Your Covid 19 test is pending results should be back within a couple of days. Sepsis Event Note - Evaluation Sepsis Screening Result: No Definite Risk - Focused Exam Vital Signs: Vital Signs Temp Pulse Resp BP Pulse Ox 01/21/20 06:07 37.1 C 94 16 141/87 H 100 Date Exam was Performed: 01/21/20 Time Exam was Performed: 08:02 - My Orders Last 24 Hours: My Active Orders 01/21/20 06:26 EKG Documentation Completion [RC] STAT Chest 1V Frontal [CR] Stat 01/21/20 06:29 Isolation [COMM] Routine 01/21/20 06:56 CORONAVIRUS COVID-19 PCR PHL [MREF] Stat - Assessment/Plan Last 24 Hours: My Active Orders 01/21/20 06:26 EKG Documentation Completion [RC] STAT Chest 1V Frontal [CR] Stat 01/21/20 06:29 Isolation [COMM] Routine 01/21/20 06:56 CORONAVIRUS COVID-19 PCR PHL [MREF] Stat
--- NOTE | 2020-01-21 20:14 | CR ---
Chest: Portable view of the chest was obtained. Comparison: Prior chest x-ray of 07/18/09. Heart size and mediastinum are normal. Lungs are clear with no acute parenchymal change. Bony structures are grossly intact. Impression: 1. Nothing acute is seen on portable chest x-ray. Diagnostic code #1 Study was dictated in MDT
== END 2020-01-21 08:25 | disposition home or self-care (01) ==
LOC: JD.ED 06:01
DX: B34.9 Viral infection, unspecified (principal); Z91.09 Other allergy status, other than to drugs and biological substances
CPT/HCPCS: 36415; 71045; 85379; 87804; 93005; 99285; U0001; 93010; 99282

== ENCOUNTER 2023-08-15 11:39 | Emergency (ER) | payer BC ==
[2023-08-15] MEDS ORDERED: Sodium Chloride 0.9% 10 ML Syringe FLUSH PRN (11:52)
[2023-08-15 12:19] LABS: BASOPHILS PERCENT AUTO 0.3 % (0.0-1.0); EOSINOPHILS ABSOLUTE AUTO 0.1 K/mm3 (0.0-0.4); EOSINOPHILS PERCENT AUTO 1.7 % (0.0-6.0); HEMATOCRIT 42.4 % (37.0-47.0); HEMOGLOBIN 14.8 gm/dl (12.0-16.0); IMMATURE GRAN ABSOLUTE AUTO 0.03 K/mm3 (0.00-0.05); IMMATURE GRAN PERCENT AUTO 0.4 % (0.0-0.4); LYMPHOCYTES ABSOLUTE AUTO 2.3 K/mm3 (1.0-4.8); MEAN CORPUSCULAR HEMOGLOBIN 29.4 pg (28.0-32.0); MEAN CORPUSCULAR HGB CONC 34.9 g/dl (32.0-36.0); MEAN CORPUSCULAR VOLUME 84.1 fl (83.0-99.0); MEAN PLATELET VOLUME 9.8 fl (9.4-12.3); MONOCYTES ABSOLUTE AUTO 0.6 K/mm3 (0.0-0.8); MONOCYTES PERCENT AUTO 8.6 % (0.0-8.0); NEUTROPHILS ABSOLUTE AUTO 3.9 K/mm3 (1.8-7.7); PLATELET COUNT,PLT 288 K/mm3 (150-400); RED BLOOD CELL COUNT 5.04 M/mm3 (4.10-5.30); WHITE BLOOD CELL COUNT,WBC 6.94 K/mm3 (3.9-11.3)
[2023-08-15 12:37] LABS: INR 0.96; PROTHROMBIN TIME 10.3 SECONDS (9.7-12.0)
[2023-08-15 12:39] LABS: PTT,PARTIAL THROMBOPLSTIN TIME 26.6 SECONDS (21.7-31.4)
[2023-08-15 12:40] LABS: D-DIMER QUANTITATIVE < 0.19 mg/L (0.19-0.50)
[2023-08-15 12:45] LABS: A/G RATIO 1.1 (1-2); ALANINE AMINOTRANSFERASE,ALT 33 U/L (14-59); ALBUMIN 4.2 g/dl (3.4-5.0); ALKALINE PHOSPHATASE 94 U/L (46-116); ANION GAP 12.8 (5-15); ASPARTATE AMNIOTRANSFERASE,AST 18 U/L (15-37); BILIRUBIN TOTAL 0.4 mg/dL (0.2-1.0); BLOOD UREA NITROGEN,BUN 7 mg/dL (7-18); BUN/CREATININE RATIO 7.8 (14-18); CALCIUM 9.4 mg/dL (8.5-10.1); CARBON DIOXIDE,CO2 27 mEq/L (21-32); CHLORIDE,CL 102 mEq/L (98-107); CREATININE 0.9 mg/dL (0.55-1.02); EST CRCL DRUG DOSING (CG) 73.27 mL/min; ESTIMATED GFR 82 mL/min (>60); GLUCOSE RANDOM 97 mg/dL (70-99); POTASSIUM,K 3.8 mEq/L (3.5-5.1); PROTEIN TOTAL,TP 8.2 g/dl (6.4-8.2); SODIUM,NA 138 mEq/L (136-145)
[2023-08-15 12:49] LABS: TROPONIN I HIGH SENSITIVITY < 4 pg/mL (<=51)
[2023-08-15] MEDS ORDERED: Ketorolac 30 MG/ML SDV IVPUSH ONE (13:01)
== END 2023-08-15 13:29 | disposition home or self-care (01) ==
LOC: JD.ED 11:39
DX: R07.89 Other chest pain (principal); F41.9 Anxiety disorder, unspecified; R20.0 Anesthesia of skin; Z91.048 Other nonmedicinal substance allergy status
CPT/HCPCS: 36415; 71045; 80053; 83735; 83880; 84484; 85025; 85379; 85610; 85730; 93005; 96374; 99285; J1885; J3490